=== PATIENT | female | born 1955 | race Caucasian/White ===

== ENCOUNTER 2021-03-06 07:44 | Outpatient (CLI) | payer OTHER, SELFPAY ==
[2021-03-06 09:15] LABS: Basophils Percent Auto 0.7 % (0.2-1.2); Eosinophils Absolute Auto 0.3 K/mm3 (0-0.3); Eosinophils Percent Auto 4.7 % (0-4.4); Hematocrit 42.4 % (37.0-47.0); Hemoglobin 14.6 g/dL (12.0-15.0); Immature Granulocyte Absolute 0.02 K/mm3 (0.00-0.031); Immature Granulocyte Percent A 0.3 % (0-0.5); Lymphocytes Percent Auto 32.7 % (18.3-44.2); Mean Corpuscular HGB Conc 34.4 g/dl (32-36); Mean Corpuscular Hemoglobin 32.2 pg (26-34); Mean Corpuscular Volume 93.6 fl (80-100); Mean Platelet Volume 8.9 fl (7.4-10.4); Monocytes Absolute Auto 0.6 K/mm3 (0.1-0.6); Monocytes Percent Auto 9.8 % (2.6-8.5); Neutrophils Absolute Auto 3.2 K/mm3 (1.3-6.7); Neutrophils Percent Auto 51.8 % (45.5-73.1); Platelet Count Result 224 k/mm3 (150-375); Red Blood Count 4.53 M/mm3 (4.2-5.4); Red Cell Distribution Width 12.4 % (11.5-14.5); White Blood Count 6.1 K/mm3 (4.5-10.0)
[2021-03-06 09:23] LABS: Albumin Level 4.5 g/dL (3.5-5.1)
[2021-03-06 09:28] LABS: Hemoglobin A1C 5.4 % (<5.7)
[2021-03-06 09:29] LABS: Urine Cotinine NEGATIVE
[2021-03-06 09:33] LABS: Anion Gap 4 mmol/L (8-16); Blood Urea Nitrogen 10 mg/dL (7-17); Calcium 9.5 mg/dL (8.4-10.2); Carbon Dioxide 32 mmol/L (22-30); Chloride 105 mmol/L (98-107); Estimated Glomerular Filt Rate 56; Glucose 113 mg/dL (65-105); Potassium 3.6 mmol/L (3.4-5.0); Sodium 141 mmol/L (137-145)
== END 2021-03-06 07:45 | disposition home or self-care (01) ==
LOC: ANHSURGERY 07:48
PROVIDERS: Anesthesiology; PCP Internal Medicine; Visit Provider Orthopaedic Surgery
DX: M17.10 Unilateral primary osteoarthritis, unspecified knee (principal); E11.9 Type 2 diabetes mellitus without complications; Z01.818 Encounter for other preprocedural examination
CPT/HCPCS: 36415; 80048; 80307; 82040; 83036; 85025; 86850; 86900; 86901; 87081

== ENCOUNTER → 2021-03-16 07:37 | Outpatient (CLI) | payer OTHER, SELFPAY ==
[2021-03-16 19:22] LABS: SARS-CoV-2 RNA PCR Negative
== END ==
PROVIDERS: PCP Internal Medicine; Visit Provider Orthopaedic Surgery
DX: Z01.812 Encounter for preprocedural laboratory examination (principal); Z20.822 Contact with and (suspected) exposure to COVID-19
CPT/HCPCS: C9803; U0003; U0005

== ENCOUNTER 2021-03-19 00:42 | Day surgery (SDC) | payer OTHER, SELFPAY ==
[2021-03-06 08:15] VITALS: BP 154/86; PULSE 76; RESP 18; TEMP 36.9; O2SAT 96; BMI 27.2
[2021-03-19] VITALS (15 sets, daily range): BP systolic 113–160; BP diastolic 64–88; PULSE 67–85; RESP 10–18; TEMP 36.1–36.8; O2SAT 95–100; BMI 32.9
--- NOTE | ~2021-03-19 | XR_ITS ---
EXAMINATION: XR knee LT 2V DATE: 03/19/2021 10:18 INDICATION: Left knee arthroplasty. Postop. TECHNIQUE: 2 views of left knee were obtained. COMPARISON: Left knee radiographs 12/23/2019 FINDINGS: There is a total left knee arthroplasty with patellar resurfacing in near-anatomic alignmen t. No fracture. There is gas in the knee joint and soft tissues, consistent with recent surgery. IMPRESSION: 1. Total left knee arthroplasty in near-anatomic alignment. Reviewed, dictated and finalized at location B.
[2021-03-19] MEDS: ACETAMINOPHEN 500 MG TABLET 1000 MG PO ×3 (06:18→21:08)
--- NOTE | 2021-03-19 06:34 | WPDANESEPPF ---
Anes - Initial Pre Proc Eval Procedure: Operation Date: 03/19/21 07:30 Proposed Procedures p Left Total Knee Arthroplasty - Narciso Lawrence MD Date/Time: 03/19/21 06:34 Surgeon: Narciso Lawrence MD Pre Op Diagnosis: Left Knee OA Patient Data Age: 65 Gender: F Height: 1.72 m Weight: 79.2 kg Last Vital Signs Temp 36.9 C 03/06/21 08:15 Pulse 76 03/06/21 08:15 Resp 18 03/06/21 08:15 BP 154/86 H 03/06/21 08:15 Pulse Ox 96 03/06/21 08:15 Allergies Allergy/AdvReac Type Severity Reaction Status Date / Time Sulfa (Sulfonamide Allergy Unknown Unknown-LAST Verified 03/06/21 08:03 Antibiotics) RECEIVED 1979 Home Medications Medication Instructions Recorded Confirmed Type amlodipine 5 mg tablet 5 mg PO QAM tablet 10/14/19 03/19/21 History losartan 100 1 tablet PO QAM tablet 10/14/19 03/19/21 History mg-hydrochlorothiazide 12.5 mg tablet sertraline 50 mg tablet 50 mg PO QAM tablet 10/14/19 03/19/21 History semaglutide 1.5 ml SUBCUT WEEKLY 11/21/20 03/19/21 History cranberry extract 500 mg PO QAM 03/06/21 03/19/21 History evolocumab [Marbella Petersen] See Rx Instructions .ROUTE .COMPLEX 03/06/21 03/19/21 History milk thistle 175 mg PO QAM 03/06/21 03/19/21 History omeprazole 20 mg PO QAM 03/06/21 03/19/21 History ropinirole 0.5 mg PO HS 03/06/21 03/19/21 History trazodone 50 mg PO HS 03/06/21 03/19/21 History mupirocin 2 % topical ointment 1 applic TOPICAL BID #22 g 03/08/21 03/19/21 Rx rivaroxaban 10 mg tablet 10 mg PO DAILY #14 tablet 03/08/21 03/19/21 Rx Patient hx anesthesia problems: none Family hx anesthesia problems: none PMFSH Past Medical History Medical History (Updated 03/19/21 @ 06:35 by Fausto J. Luchtefeld, DO) BMI 30.0-30.9,adult Diabetes 11/08/20 A1C=5.7 GERD (gastroesophageal reflux disease) Hyperlipidemia Hypertension Ureter cancer Surgical History Surgical History History of hysterectomy History of nephrectomy 01/2019 History of rotator cuff surgery History of surgery on wrist Social History Social History Smoking status: Never smoker Second hand tobacco smoke exposure: No Alcohol intake: current Drinks per week: 6 Substance use: never Substance use type: does not use Living arrangements: with friend(s) Additional living arrangements comments: LIVES WITH SIGNIFICANT OTHER Spiritual care concerns: No Anes - Eval Final PreProcedure Day of Procedure 03/19/21 06:34 Patient weight: overweight Heart: regular rate and rhythm Lungs: clear to auscultation and normal air movement Airway: Mallampati scale class II Neurological: alert and oriented Last oral intake: >/= 8 hours ASA classification: III Emergent: no Anesthetic plan: proceed Anesthesia type and monitoring: regional spinal and standard monitoring Informed Consent: The patient's anesthetic plan and its attendant risks and benefits were discussed with the patient/family/POA. Questions were solicited and answers provided to the satisfaction of the patient/family/POA.
[2021-03-19 06:38] LABS: Glucose Point of Care 107 mg/dl (65-105)
--- NOTE | 2021-03-19 06:42 | WPDANESPNB ---
Anes - Peripheral Nerve Block Date/Time: 03/19/21 06:42 I have discussed with the patient/family/POA the placement of a peripheral nerve block for post-operative pain management, including associated risks, benefits, complications, and side effects. Alternative methods of post-operative analgesia were detailed. Questions were solicited and answers provided to the satisfaction of the patient/family/POA. Time-Out: A pre-procedural Time-Out was completed immediately before starting the procedure and confirmed: Patient Identification, Site, Procedure, Patient Position and the Availability of Requisite Equipment. Clinical Indications: Acute post-operative pain management requested by the operative surgeon. Nerve Block Insertion Note Anes-nerve block: adductor canal left Patient position: supine Skin prep: chlorhexidine Needle: 22 gauge, stimulating, insulated echogenic needle. Needle length: 80 mm Technique: ultrasound Injectate: bupivacaine 0.5% with epi 5 mcg/ml (30cc - no epi) Observations: tolerated well Complications: none Procedure start time:: 717 Procedure end time:: 721
[2021-03-19] MEDS: LACTATED RINGERS 1,000 ML 30 ML IV CONT ×2 (06:52→10:08)
--- NOTE | 2021-03-19 07:02 | WPDHPUPDATE1 ---
History and Physical Update Update Date/Time: 03/19/21 07:02 History and Physical has been reviewed, including an updated exam of the patient. There are NO changes in the patient's condition. Risks, benefits, and alternatives have been discussed and questions answered. Patient agrees to proceed with procedure.
[2021-03-19] MEDS: TRANEXAMIC ACID 1,000MG/ISO100 1,000 MG/100 ML BAG 200 MG IVPB (07:05)
[2021-03-19] MEDS: ceFAZolin 2 GM/D5W 50 ML 2 GM/50 ML BAG IVPB (07:39)
[2021-03-19] MEDS: TRANEXAMIC ACID 1,000 MG/10 ML AMPUL 1000 MG TOPICAL (08:13)
[2021-03-19] MEDS: ceFAZolin SODIUM 1 GM VIAL IV PUSH (09:16)
--- NOTE | 2021-03-19 09:49 | P.OP_ITS ---
Procedure Note - Detailed Date of procedure: 03/19/21 Pre-op diagnosis: Left Knee OA Post-op diagnosis: same Procedure performed: Left total knee replacement Description of procedure: The patient was identified and proper site identified. In the preop holding area the anesthesia team performed a left sub sartorial block after which the patient was taken to the operating room and transferred to the OR table positioning supine taking care to pad the torso and extremities. After a spinal anesthetic was administered, a nonsterile tourniquet was placed high on the left thigh. The left lower extremity was prepped and draped in the usual sterile fashion. The extremity was exsanguinated and with the knee flexed tourniquet was inflated to 300 mmHg remaining up for approximately 70 minutes. An anterior midline incision was made and a mid vastus approach was used. Infra and suprapatellar fat pads were excised. Patella was resected leaving 15 mm thickness and prepared for the 31 round three peg component. Using the intramedullary guide the distal femur was cut in the proper orientation for the size 65 femoral component. Using the extramedullary guide the tibia was cut perpendicular to the long axis protecting collateral ligaments and popliteal structures. It was sized to a 67. Flexion and extension gaps were balanced. Trial reduction was undertaken and the weight-bearing line was noted to passed through the center of the joint. Proximal tibia was drilled and punched in the proper orientation for the real component. Trial components were removed. The bone surfaces were washed with pulsatile lavage and dried. The real components were cemented simultaneously. The knee was held in extension and the patella held clamped until the cement had cured. Excess cement was removed from the joint. After trialing it was determined that the 11 mm insert gave full range of motion from 0-120 degrees of flexion and the patella tracked in the femoral groove with no lift-off. After final lavage the joint the real 11 E poly insert was placed and secured with a locking bar. A Betadine and saline wash was placed into the wound and allowed to sit for approximately 3 minutes and then evacuated. Periarticular tissues were infiltrated with 60 cc of the arthroplasty solution. 1 g of tranexamic acid was left in the wound. The extensor mechanism was repaired with #2 Vicryl suture and 0 looped PDS suture. Subcu was reapproximated with three 0 Monocryl and two 0 strata fix with tissue adhesive for the skin. A sterile dressing was applied. She tolerated the procedure well, was awakened and extubated, transferred to the bed and was taken to recovery area in stable condition. There were no known intraoperative complications. Perioperative antibiotics were administered. Anesthesia: regional and spinal Surgeon: Narciso Lawrence MD Tower Equipment Installer: Kayy Alas Estimated blood loss (mL): 100 Tourniquet time (min): 70 Drains: No Packing: No Pathology: none sent Complications: No immediate complications Condition: stable Disposition: PACU
[2021-03-19 10:35] LABS: Glucose Point of Care 121 mg/dl (65-105)
--- NOTE | 2021-03-19 10:45 | SUR.PHASEI ---
[id number] sbar faxed floor notified
[2021-03-19] MEDS: fentaNYL CITRATE INJ (*CRX) 100 MCG/2 ML VIAL 25 MCG IV PUSH ×2 (10:49→10:52)
--- NOTE | 2021-03-19 11:25 | ADMGEN ---
This patient, Matheus Boyle, was admitted to 2 Medical Room 244-. Patient/family oriented to hospital policies and general routines including ID bracelet, bed and alarms, visiting hours, pain management, procedures, bathroom and other care routines, personal items, smoking policy, room service/diet, and visiting hours. Information on how to activate the Rapid Response Team has been discussed. Patient/Family are encouraged to report perceived risks to care and to ask questions if they do not understand what they are told or what they should do.
[2021-03-19] MEDS: KETOROLAC 15 MG/ML VIAL (*BKC) IV PUSH ×3 (11:56→23:19)
[2021-03-19] MEDS: oxyCODONE HCL (*CRX) 5 MG TAB IR PO ×4 (12:11→23:59)
[2021-03-19 12:32] LABS: Glucose Point of Care 84 mg/dl (65-105)
[2021-03-19] MEDS: PANTOPRAZOLE 40 MG TABLET PO (13:19)
[2021-03-19] MEDS: LOSARTAN POTASSIUM 100 MG TABLET PO (13:20)
[2021-03-19] MEDS: hydroCHLOROthiazide 12.5 MG CAPSULE PO (13:20)
[2021-03-19] MEDS: DOCUSATE SODIUM 100 MG CAPSULE PO (16:58)
[2021-03-19 17:04] LABS: Glucose Point of Care 84 mg/dl (65-105)
[2021-03-19] MEDS: traZODone HCL 50 MG TABLET PO (21:08)
[2021-03-19] MEDS: rOPINIRole HCL 0.5 MG TABLET PO (21:08)
[2021-03-19 21:29] LABS: Glucose Point of Care 116 mg/dl (65-105)
[2021-03-20 00:59] VITALS: BP 122/74; PULSE 81; RESP 16; TEMP 36.8; O2SAT 96
[2021-03-20] MEDS: oxyCODONE HCL (*CRX) 2.5 MG TAB IR PO ×4 (01:51→14:41)
[2021-03-20] MEDS: oxyCODONE HCL (*CRX) 5 MG TAB IR PO ×3 (04:49→12:42)
[2021-03-20 05:00] VITALS: BP 114/76; PULSE 82; RESP 16; TEMP 36.7; O2SAT 95
[2021-03-20 05:16] LABS: Basophils Percent Auto 0.4 % (0.2-1.2); Eosinophils Absolute Auto 0.2 K/mm3 (0-0.3); Hematocrit 34.9 % (37.0-47.0); Immature Granulocyte Absolute 0.01 K/mm3 (0.00-0.031); Immature Granulocyte Percent A 0.1 % (0-0.5); Lymphocytes Percent Auto 20.3 % (18.3-44.2); Mean Corpuscular HGB Conc 34.4 g/dl (32-36); Mean Corpuscular Hemoglobin 31.7 pg (26-34); Mean Corpuscular Volume 92.3 fl (80-100); Mean Platelet Volume 9.3 fl (7.4-10.4); Monocytes Absolute Auto 0.8 K/mm3 (0.1-0.6); Neutrophils Absolute Auto 4.4 K/mm3 (1.3-6.7); Neutrophils Percent Auto 64.2 % (45.5-73.1); Platelet Count Result 168 k/mm3 (150-375); Red Blood Count 3.78 M/mm3 (4.2-5.4); Red Cell Distribution Width 12.1 % (11.5-14.5); White Blood Count 6.9 K/mm3 (4.5-10.0)
[2021-03-20 05:26] LABS: Anion Gap 3 mmol/L (8-16); Blood Urea Nitrogen 10 mg/dL (7-17); Calcium 8.8 mg/dL (8.4-10.2); Carbon Dioxide 32 mmol/L (22-30); Chloride 103 mmol/L (98-107); Estimated CRCL calculation 65 ml/min; Estimated Glomerular Filt Rate > 60; Glucose 116 mg/dL (65-105); Potassium 3.7 mmol/L (3.4-5.0); Sodium 138 mmol/L (137-145)
[2021-03-20] MEDS: ACETAMINOPHEN 500 MG TABLET 1000 MG PO ×2 (05:29→13:54)
--- NOTE | 2021-03-20 07:19 | PM.DS ---
DS: Admitting Diagnosis Admitting Diagnosis Admitting Diagnosis: Osteoarthritis left knee DS: Discharge Diagnosis Discharge Diagnosis (1) History of left knee replacement: Code(s): Z96.652 - Presence of left artificial knee joint Status: Resolved (2) Osteoarthritis of knee: Qualifiers: Osteoarthritis type: primary Laterality: left Qualified Code(s): M17.12 - Unilateral primary osteoarthritis, left knee Code(s): M17.10 - Unilateral primary osteoarthritis, unspecified knee Status: Chronic Assessment and Plan: The patient will be discharged home today and the doing therapy on her own for the balance of the week. Outpatient therapy begins next week. Home going instructions reviewed with her in detail as well as instructions to contact the office with any orthopedic related questions. DS: Summary Hospital Course Reason for hospitalization: Observation following an outpatient procedure. Hospital Course: Postoperatively the patient was admitted to the floor and began her physical therapy. Overall her pain is being well controlled. She will be discharged after second therapy today. Status at Discharge Functional status at discharge: uses cane/walker Time Spent with Patient Time attestation: Total time spent providing and/or coordinating discharge services: Exam Const: General: cooperative, no acute distress and alert Orientation/consciousness: patient oriented x3 Limitations: no limitations HENMT: Head: normal to inspection Ears: hearing grossly normal bilaterally Face and sinus: face symmetric Mouth: Yes moist mucous membranes Teeth and gingiva: fair dentition Eyes: Alignment and Position: alignment normal and position normal Sclera: sclerae normal Neck: Neck: normal visual inspection and nontender Chest: Chest palpation & inspection: normal inspection of the chest Resp: Effort & Inspection: normal respiratory effort and able to speak in complete sentences GI: Inspection: other (Nondistended) Skin: General skin exam: normal color Rashes: no rashes Neuro: General: patient oriented x3 Cognition (Neuro): normal cognition Speech: normal speech Gait exam (Neuro): Other gait observations present Extrem: General: normal to inspection and other Other: Exam of the left lower extremity does reveal some swelling about the knee. No bruising, warmth or erythema noted around the incision. She is able do a straight leg raise. Passively she has full extension. Grossly motor and sensory function intact to the left lower extremity. Psych: Appearance: grossly normal Mental Status: mental status grossly normal Radiology Reports: Comments: EXAMINATION: XR knee LT 2V DATE: 03/19/2021 10:18 INDICATION: Left knee arthroplasty. Postop. TECHNIQUE: 2 views of left knee were obtained. COMPARISON: Left knee radiographs 12/23/2019 FINDINGS: There is a total left knee arthroplasty with patellar resurfacing in near-anatomic alignment. No fracture. There is gas in the knee joint and soft tissues, consistent with recent surgery. IMPRESSION: 1. Total left knee arthroplasty in near-anatomic alignment. DS: Data Data Completed and Pending Labs on day of discharge: Labs from last 24 hours 03/20/21 03/20/21 03/19/21 04:44 04:44 21:22 WBC 6.9 RBC 3.78 L Hgb 12.0 Hct 34.9 L MCV 92.3 MCH 31.7 MCHC 34.4 RDW 12.1 Plt Count 168 MPV 9.3 Immature Gran % (Auto) 0.1 Neut % (Auto) 64.2 Lymph % (Auto) 20.3 [place] % (Auto) 12.0 H Eos % (Auto) 3.0 Baso % (Auto) 0.4 Lymph # (Auto) 1.40 [place] # (Auto) 0.8 H Eos # (Auto) 0.2 Baso # (Auto) 0.0 Abs Immat Gran (auto) 0.01 Absolute Neuts (auto) 4.4 Absolute Nucleated RBC 0.0 Nucleated RBC % 0.0 Sodium 138 Potassium 3.7 Chloride 103 Carbon Dioxide 32 H Anion Gap 3 L BUN 10 Creatinine 0.90 Estim Creat Clear Calc 65 Estimated GFR > 60 Glucose
[2021-03-20 08:04] LABS: Glucose Point of Care 129 mg/dl (65-105)
[2021-03-20] MEDS: hydroCHLOROthiazide 12.5 MG CAPSULE PO (08:43)
[2021-03-20] MEDS: DOCUSATE SODIUM 100 MG CAPSULE PO (08:43)
[2021-03-20] MEDS: RIVAROXABAN 10 MG TABLET PO (08:44)
[2021-03-20] MEDS: LOSARTAN POTASSIUM 100 MG TABLET PO (08:44)
[2021-03-20] MEDS: PANTOPRAZOLE 40 MG TABLET PO (08:44)
[2021-03-20 08:59] VITALS: BP 110/65; PULSE 78; RESP 16; TEMP 36.9; O2SAT 95
[2021-03-20] MEDS: ONDANSETRON INJ 4 MG/2 ML VIAL IV PUSH (10:19)
[2021-03-20] MEDS: SERTRALINE HCL 50 MG TABLET PO (10:54)
[2021-03-20] MEDS: amLODIPine BESYLATE 5 MG TABLET PO (10:54)
[2021-03-20 12:02] LABS: Glucose Point of Care 165 mg/dl (65-105)
[2021-03-20 12:59] VITALS: BP 120/70; PULSE 76; RESP 16; TEMP 37; O2SAT 98
--- NOTE | 2021-03-20 13:54 | P.PNAN_ITS ---
Anes - Prog Note Post-Op Date/Time: 03/20/21 13:54 Cardiovascular status: normal Respiratory status: normal Airway patency: baseline Mental status: baseline Post-Op hydration status: normal Vital Signs: Last Vital Signs Temp 36.9 C 03/20/21 08:59 Pulse 78 03/20/21 08:59 Resp 16 03/20/21 08:59 BP 110/65 03/20/21 08:59 Pulse Ox 95 03/20/21 08:59 Pain Score (VAS): 8 I/O: Intake & Output 03/19/21 03/20/21 03/20/21 23:59 07:59 15:59 Intake Total 840 400 530 Output Total 475 Balance 365 400 530 Laboratory Tests 03/20/21 04:44 03/20/21 04:44 03/19/21 03/19/21 03/20/21 16:54 21:22 04:44 WBC 6.9 RBC 3.78 L Hgb 12.0 Hct 34.9 L MCV 92.3 MCH 31.7 MCHC 34.4 RDW 12.1 Plt Count 168 MPV 9.3 Immature Gran % (Auto) 0.1 Neut % (Auto) 64.2 Lymph % (Auto) 20.3 [place] % (Auto) 12.0 H Eos % (Auto) 3.0 Baso % (Auto) 0.4 Lymph # (Auto) 1.40 [place] # (Auto) 0.8 H Eos # (Auto) 0.2 Baso # (Auto) 0.0 Abs Immat Gran (auto) 0.01 Absolute Neuts (auto) 4.4 Absolute Nucleated RBC 0.0 Nucleated RBC % 0.0 Sodium Potassium Chloride Carbon Dioxide Anion Gap BUN Creatinine Estim Creat Clear Calc Estimated GFR Glucose POC Capillary Glucose 84 116 H Calcium 03/20/21 03/20/21 03/20/21 04:44 07:45 11:46 WBC RBC Hgb Hct MCV MCH MCHC RDW Plt Count MPV Immature Gran % (Auto) Neut % (Auto) Lymph % (Auto) [place] % (Auto) Eos % (Auto) Baso % (Auto) Lymph # (Auto) [place] # (Auto) Eos # (Auto) Baso # (Auto) Abs Immat Gran (auto) Absolute Neuts (auto) Absolute Nucleated RBC Nucleated RBC % Sodium 138 Potassium 3.7 Chloride 103 Carbon Dioxide 32 H Anion Gap 3 L BUN 10 Creatinine 0.90 Estim Creat Clear Calc 65 Estimated GFR > 60 Glucose 116 H POC Capillary Glucose 129 H 165 H Calcium 8.8 Post-procedural complaints: none Patient Feedback: Patient satisfied with anesthetic care.
== END 2021-03-20 14:44 | disposition home or self-care (01) ==
LOC: ANHSURGERY 05:52 → ANH2MED 11:20
PROVIDERS: PCP Internal Medicine; Visit Provider Orthopaedic Surgery
PROC: (CPT 27447; principal; 2021-03-19 07:30)
DX: M17.12 Unilateral primary osteoarthritis, left knee (principal); G89.18 Other acute postprocedural pain; I10 Essential (primary) hypertension; E78.5 Hyperlipidemia, unspecified; E11.9 Type 2 diabetes mellitus without complications; K21.9 Gastro-esophageal reflux disease without esophagitis; Z85.54 Personal history of malignant neoplasm of ureter; Z79.01 Long term (current) use of anticoagulants
CPT/HCPCS: 27447; 64447; 36415; 73560; 80048; 82948; 85025; 97110; 97116; 97161; 97165; 97530; 97535; A9270; C1713; C1776; J0690; J1170; J1885; J2250; J2405; J2704; J3010; J3370; J7120

== ENCOUNTER 2021-05-28 12:03 | Outpatient (CLI) | payer OTHER, SELFPAY ==
--- NOTE | ~2021-05-28 | US_ITS ---
EXAMINATION: US venous doppler [facility] DATE: 05/28/2021 12:34 INDICATION: Left leg pain TECHNIQUE: Byrd scale images without and with compression and Doppler images of the left lower extrem ity veins were obtained. COMPARISON: None FINDINGS: The left common femoral vein, profunda femoral vein, femoral vein, popliteal vein, peroneal trunk, posterior tibial veins, and greater saphenous vein are patent. A Willis's cyst is noted. There is a 2.7 x 1.7 x 0.3 cm hypoechoic area without internal vascularity in the area of patient's pain. IMPRESSION: 1. Patent left lower extremity veins. No evidence of deep venous thrombosis. 2. Small fluid collection in the area of the patient's pain which could reflect a small amount of flu id from a ruptured Willis's cyst. Reviewed, dictated and finalized at location A. IMPRESSION: 1. Patent left lower extremity veins. No evidence of deep venous thrombosis. 2. Small fluid collection in the area of the patient's pain which could reflect a small amount of fluid from a ruptured Willis's cyst.
== END 2021-05-28 12:04 | disposition home or self-care (01) ==
PROVIDERS: PCP Internal Medicine; Visit Provider Orthopaedic Surgery
DX: M79.662 Pain in left lower leg (principal); M79.89 Other specified soft tissue disorders
CPT/HCPCS: 93971

== ENCOUNTER 2021-06-21 17:00 | Outpatient (RCR) | payer OTHER, SELFPAY ==
--- NOTE | 2021-03-27 13:28 | PTOPEVAL ---
PHYSICAL THERAPY EVALUATION AND PLAN OF CARE Thank you for referring Matheus Boyle to [facility].? The patient is scheduled to be seen for therapy? 2-3x/week for 5 weeks. Please review, sign, date and return this plan of care SIMONA. I agree with and certify that the following plan of care is medically necessary. Referring Physician Date Attending Provider: Narciso Lawrence MD Evaluation Outpatient Past Medical History Neurological History Hx Neurological Disorders No Significant History Cardiovascular History Hx Hypercholesterolemia Yes Hx Hypertension Yes Hx Other Cardiac Disorders Yes: PT DENIES CARDIAC SYMPTOMS. 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 Respiratory History Hx Respiratory Disorders No Significant History Gastrointestinal History Hx Gastroesophageal Reflux Disease Yes Hx Other Gastrointestinal Disorders Yes: FATTY LIVER DISEASE Genitourinary History Hx Nephrectomy Yes: RT 2019 DUE TO [place] Musculoskeletal History Hx Arthritis Yes Hx Fractures Yes: RT WRIST Hx Orthopedic Surgery Yes: RT ROTATOR CUFF REPAIR, ORIF RT WRIST Hematological History Hx Hematological Disorders No Significant History Endocrine History Hx Diabetes Yes HEENT History Hx Other HEENT Disorders Yes: GLASSES Integumentary History Hx Excision Skin Lesion Yes: BACK Reproductive History Hx Hysterectomy Yes Hx Other Reproductive Disorders Yes: LT SIDE ETOPIC PREGNCEY 1980 Psychosocial History Hx Depression Yes Pain History Has Past Pain Affected Your Daily Life Yes: LT KNEE Anesthesia History Hx Anesthesia Reactions No Significant History Other History Hx Cancer Yes: KIDNEY Hx Implanted Device Yes: RT WRIST Diagnosis left TKA Onset 03/19/21 Subjective Information Left TKA 1 week ago. States Query Text:As Reported By Patient/ that sleeping is not good and Family the pain medication is not very effective. Matheus is doing exercises she was given in the hospital and is otherwise trying to rest. Self Report Pain Assessment Left Knee(s) Reported Pain Level 9 Pain Frequency Acute,Intermittent Lowest Pain Intensity 9 Greatest Pain Intensity 10 Pain Score Pain Score 9: Self Report Interventions Used Interventions Used By Clinicians Exercise,Mobilization,Manual Therapy Techniques Pain Relief Interventions Used By Ice,Inactivity/Rest,Medication Patient
--- NOTE | 2021-04-03 14:26 | PCPTNOTE ---
Patient did not show up for scheduled appointment this date. Called and spoke with Pt. She stated to have forgotten she had an appointment today. Reminded her of her appointment tomorrow at 13:45, to which she requested to move to earlier slot. Pt's appointment is now at 10:15 on 04/04/21.
--- NOTE | 2021-04-09 09:53 | PCPTNOTE ---
Patient called & cancelled scheduled appointment this date due to not having a ride available to take her to her appointment.
--- NOTE | 2021-04-23 13:22 | PTOPEVAL ---
PHYSICAL THERAPY PLAN OF CARE UPDATE AND PROGRESS REPORT Thank you for referring Matheus Boyle to [facility].? The patient is scheduled to be seen for therapy? 2x/week for 4 weeks. Please review, sign, date and return this plan of care SIMONA. I agree with and certify that the following plan of care is medically necessary. Referring Physician Date Attending Provider: Narciso Lawrence MD Diagnosis left TKA Onset 03/19/21 Subjective Information Matheus is 5 weeks s/p left TKA. Query Text:As Reported By Patient/ She reports that things are Family going well and noting steady progress. Still notes swelling and pain that feels like a bruise. Self Report Pain Assessment Left Knee(s) Reported Pain Level 1 Pain Frequency Acute,Intermittent Pain Score Pain Score 1: Self Report Interventions Used Interventions Used By Clinicians Electrical Stimulation, Exercise,Ice Pain Relief Interventions Used By Ice,Inactivity/Rest,Medication Patient Lower Extremity Range of Motion Knee Range of Motion Left Knee Flexion Range of Motion - Active 106 Knee Extension Range of Motion - Active -3 Query Text: Knee Range of Motion Limitations Edema,Pain Lower Extremity Muscle Strength Testing Hip Strength Left Hip Flexion Strength 4+ Good + Hip Extension Strength 4 Good Hip Abduction Strength 4- Good - Knee Strength Left Knee Flexion Strength 4 Good Knee Extension Strength 4 Good Palpation Assessment Palpation Palpation mild warmth noted that is normal for healing Extremity Circumference Assessment Circumference Assessment Location Left Body Part Knee Site Descriptor (Helix) suprapatellar Circumference (cm) 44 Noninvolved Side Circumference (cm) 41 Gait Assessment Gait Assessment Ambulation Assistive Devices None Weight Bearing Status - Left Full Weight Bearing Status - Right Full Maintains Weight Bearing Status Yes Ambulation Distance 150 Query Text:(Feet) Ambulation Speed (feet/second) 2.2 Ambulation Ability Independent Stair Climbing Assessment Stair Climbing Assessment Stair Climbing Assistive Devices Railings Number of Steps Climbed (Steps) 4 Number of Repetitions (Repetitions) 2 Technique Alternating Steps Stair Climbing Direction Both Up and Down Stair Climbing Ability Independent General Exercise General Exercises Side Left Exercise Location knee Exercise Type
--- NOTE | 2021-05-23 12:57 | PCPTNOTE ---
Patient called & cancelled scheduled appointment this date due to having wrong time written down on her schedule has rescheduled for another appointment tomorrow.
--- NOTE | 2021-05-28 11:32 | PCPTNOTE ---
Matheus comes to her appointment today complaining of increased pain in her left calf. She states she has felt like it was bruised since surgery, but feels it worsened over the weekend. The skin is not hot or red; circumference left = 35.5cm, circumference right = 35cm, point tender to middle of gastroc. I spoke with Dr. Lawrence regarding these symptoms and he referred her for a duplex scan of the gastroc. Because of this referral and risk of DVT, we will reschedule this re-assessment for a later date. Today's appointment is cancelled.
--- NOTE | 2021-06-06 11:24 | PTOPEVAL ---
PHYSICAL THERAPY PROGRESS REPORT Thank you for referring Matheus Boyle to [facility].? Please review, sign, date and return this plan of care SIMONA. I agree with and certify that the following plan of care is medically necessary. Referring Physician Date Attending Provider: Narciso Lawrence MD Diagnosis left TKA Onset 03/19/21 Subjective Information Matheus had a doppler last week Query Text:As Reported By Patient/ that was negative for DVT, but Family positive for fluid consistent with burst mohan's cyst. She still has night pain and popping when doing stairs. Self Report Pain Assessment Left Knee(s) Reported Pain Level 2 Pain Frequency Acute,Intermittent Pain Score Pain Score 2: Self Report Interventions Used Interventions Used By Clinicians Exercise,Manual Therapy Techniques Pain Relief Interventions Used By Ice,Inactivity/Rest,Medication Patient Lower Extremity Range of Motion Knee Range of Motion Left Knee Flexion Range of Motion - Active 109 Knee Extension Range of Motion - Active -3 Query Text: Knee Range of Motion Limitations Edema,Pain Lower Extremity Muscle Strength Testing Hip Strength Left Hip Flexion Strength 5 Normal Hip Extension Strength 4+ Good + Hip Abduction Strength 4+ Good + Knee Strength Left Knee Flexion Strength 4+ Good + Knee Extension Strength 5 Normal General Exercise General Exercises Side Left Exercise Location knee Exercise Type Active,Resistive Exercise Description -sit<>stand with feet Query Text:Record Sets, Reps, staggered right foot forward Resistance, and Position -discussed further left LE strengthing -half kneeling (left foot up) stand up from ground Bike Exercise Bike Extremity Bilateral Lower Type of Bike Recumbent Bike Resistance 5 Duration (minutes) 6 PT Clinical Summary Matheus is a 65 yo female s/p left TKA. Matheus continue to demonstrate improved left knee rehabilitation with improved strength and ROM of the left knee. She would benefit from continuing her HEP to further strengthen the knee after surgery. She is otherwise participa
--- NOTE | 2021-06-13 14:25 | PCPTNOTE ---
Patient called & cancelled scheduled appointment this date due writing down the wrong time. She rescheduled for 06/21.
--- NOTE | 2021-06-21 17:06 | PTOPEVAL ---
PHYSICAL THERAPY DISCHARGE NOTE Thank you for referring Matheus Boyle to [facility].? Please review, sign, date and return this plan of care SIMONA. I agree with and certify that the following plan of care is medically necessary. Referring Physician Date Attending Provider: Narciso Lawrence MD Discharge Diagnosis left TKA Onset 03/19/21 Subjective Information doing well; going back to work Query Text:As Reported By Patient/ on 06/25. reports popping in Family the knee is not painful but annoying; the popping does increase with stair climbing. Pain Assessment Timing of Pain Assessment Timing of Pain Assessment Pre-Treatment Pain Scale Pain Scale Used Numeric (1 - 10) Self Report Pain Assessment Left Knee(s) Reported Pain Level 3 Pain Frequency Acute,Intermittent Greatest Pain Intensity 4 Pain Score Pain Score 3: Self Report Interventions Used Interventions Used By Clinicians Exercise,Manual Therapy Techniques Pain Relief Interventions Used By Ice,Inactivity/Rest,Medication Patient Lower Extremity Range of Motion Knee Range of Motion Left Knee Flexion Range of Motion - Active 118 Knee Extension Range of Motion - Active -1 Query Text: Knee Range of Motion Limitations Edema,Pain Lower Extremity Muscle Strength Testing Hip Strength Left Hip Flexion Strength 5 Normal Hip Extension Strength 4+ Good + Hip Abduction Strength 4+ Good + Knee Strength Left Knee Flexion Strength 5 Normal Knee Extension Strength 5 Normal General Exercise General Exercises Side Left Exercise Location knee Exercise Type Active,Resistive Exercise Description -sit<>stand with feet Query Text:Record Sets, Reps, staggered right foot forward Resistance, and Position Manual Therapy Manual Therapy Side Left Manual Therapy Location Knee Patient Position Prone Treatment Comments STM and tennis ball rolling Query Text:Include Technique and over left quadriceps Result of Technique Rehab Teaching Rehab Teaching Teaching Topic Rehab Teaching Topic Components Exercise,Home Program As Pertains To Follow-up,Pain Management Recipient Patient Learning Preferences Demonstration,Discussion Barriers to Learning None Readiness to Learn Excellent Response Returns Demonstration, Verbalizes Understanding Method
== END 2021-06-22 11:19 | disposition home or self-care (01) ==
LOC: ANHPT 17:00
PROVIDERS: PCP Internal Medicine; Visit Provider Orthopaedic Surgery
DX: Z47.1 Aftercare following joint replacement surgery (principal); Z96.652 Presence of left artificial knee joint
CPT/HCPCS: 97014; 97110; 97140; 97162; G0283

== ENCOUNTER 2021-06-22 00:05 | Day surgery (SDC) | payer OTHER, SELFPAY ==
[2021-05-17 11:21] VITALS: BMI 26.3
--- NOTE | 2021-06-12 14:04 | PC.NURSE ---
7608- SPOKE WITH PATIENT. WENT OVER HEALTH HISTORY AND MEDICATION INFORMATION BRIEFLY. STATES NO CHANGES SINCE THE LAST PAT PHONE CALL. WENT OVER INSTRUCTIONS WITH PATIENT. VERBALIZES UNDERSTANDING.
[2021-06-22 10:26] VITALS: BP 138/83; PULSE 84; RESP 18; TEMP 35.8; O2SAT 97; BMI 26.9
[2021-06-22] MEDS: AMPICILLIN 2 GM/NS 100 ML 2 GM/100 ML BAG IVPB (10:46)
[2021-06-22] MEDS: LACTATED RINGERS 1,000 ML 150 ML IV CONT (10:46)
[2021-06-22 10:55] LABS: Glucose Point of Care 122 mg/dl (65-105)
--- NOTE | 2021-06-22 11:00 | WPDANESEPPF ---
Anes - Initial Pre Proc Eval Procedure: Operation Date: 06/22/21 11:30 Proposed Procedures p Screening Colonoscopy - Gaetano Henry MD Date/Time: 06/22/21 11:00 Surgeon: Gaetano Henry MD Pre Op Diagnosis: neoplasm screening, family hx of colon ca Patient Data Age: 65 Gender: F Height: 1.68 m Weight: 75.6 kg Last Vital Signs Temp 96.4 F L 06/22/21 10:26 Pulse 84 06/22/21 10:26 Resp 18 06/22/21 10:26 BP 138/83 06/22/21 10:26 Pulse Ox 97 06/22/21 10:26 Allergies Allergy/AdvReac Type Severity Reaction Status Date / Time Sulfa (Sulfonamide Allergy Unknown Unknown-LAST Verified 06/12/21 13:57 Antibiotics) RECEIVED 1979 Home Medications Medication Instructions Recorded Confirmed Type amlodipine 5 mg tablet 5 mg PO QAM tablet 10/14/19 06/12/21 History losartan 100 1 tablet PO QAM tablet 10/14/19 06/12/21 History mg-hydrochlorothiazide 12.5 mg tablet sertraline 50 mg tablet 50 mg PO QAM tablet 10/14/19 06/12/21 History semaglutide 1.5 ml SUBCUT WEEKLY 11/21/20 06/12/21 History Repatha Deltaick See Rx Instructions .ROUTE .COMPLEX 03/06/21 06/12/21 History milk thistle 175 mg PO QAM 03/06/21 06/12/21 History omeprazole 20 mg PO QAM 03/06/21 06/12/21 History ropinirole 0.5 mg PO HS 03/06/21 06/12/21 History trazodone 50 mg PO HS 03/06/21 06/12/21 History Laboratory Tests 06/22/21 10:52 POC Capillary Glucose 122 mg/dl H mg/dl (65-105) Patient hx anesthesia problems: none Family hx anesthesia problems: none PMFSH Past Medical History Medical History BMI 30.0-30.9,adult Diabetes 11/08/20 A1C=5.7 GERD (gastroesophageal reflux disease) Hyperlipidemia Hypertension Ureter cancer Surgical History Surgical History History of hysterectomy History of left knee replacement Surgery March 19, 2021 History of nephrectomy 01/2019 History of rotator cuff surgery History of surgery on wrist Social History Social History Smoking status: Never smoker Second hand tobacco smoke exposure: No Alcohol intake: current Drinks per week: 6 Substance use: never Substance use type: does not use Living arrangements: with family Additional living arrangements comments: LIVES WITH SIGNIFICANT OTHER Spiritual care concerns: No Anes - Eval Final PreProcedure Day of Procedure 06/22/21 11:00 Patient weight: overweight Heart: regular rate and rhythm Lungs: clear to auscultation Airway: Mallampati scale class III Neurological: alert and oriented Last oral intake: >/= 8 hours ASA classification: III Emergent: no Anesthetic plan: proceed Anesthesia type and monitoring: general GIVS and standard monitoring Informed Consent: The patient's anesthetic plan and its attendant risks and benefits were discussed with the patient/family/POA. Questions were solicited and answers provided to the satisfaction of the patient/family/POA.
--- NOTE | 2021-06-22 11:06 | WPDGICN ---
Assessment and Plan Assessment and plan (1) Family history of colon cancer in father: Code(s): Z80.0 - Family history of malignant neoplasm of digestive organs Status: Acute Assessment and Plan: patient's father had colon cancer. For this reason suggest follow-up colonoscopy at 5 year intervals. (2) Ureter cancer: Code(s): C66.9 - Malignant neoplasm of unspecified ureter Status: Acute Assessment and Plan: Patient status post nephrectomy for ureteral cancer felt cured GI Consult Note Consult date/time: 06/22/21 11:06 HPI: Matheus Boyle is a 65 year old female Presents for screening colonoscopy. Patient states that her weight appetite bowel movements are normal. She denies abdominal pain. Previous colonoscopy performed in 2012 was unremarkable. Family history is significant her father had colon cancer. Review of Systems Review of Systems: All systems reviewed & are unremarkable except as noted in HPI and below PMFSH Past Medical History Medical History (Updated 06/22/21 @ 11:08 by Gaetano Henry MD) BMI 30.0-30.9,adult Diabetes 11/08/20 A1C=5.7 GERD (gastroesophageal reflux disease) Hyperlipidemia Hypertension Ureter cancer Surgical History Surgical History History of hysterectomy History of left knee replacement Surgery March 19, 2021 History of nephrectomy 01/2019 History of rotator cuff surgery History of surgery on wrist Social History Social History Smoking status: Never smoker Second hand tobacco smoke exposure: No Alcohol intake: current Drinks per week: 6 Substance use: never Substance use type: does not use Living arrangements: with family Additional living arrangements comments: LIVES WITH SIGNIFICANT OTHER Spiritual care concerns: No Meds Home Medications and Allergies Home Medications Medication Instructions Recorded Confirmed Type amlodipine 5 mg tablet 5 mg PO QAM tablet 10/14/19 06/12/21 History losartan 100 1 tablet PO QAM tablet 10/14/19 06/12/21 History mg-hydrochlorothiazide 12.5 mg tablet sertraline 50 mg tablet 50 mg PO QAM tablet 10/14/19 06/12/21 History semaglutide 1.5 ml SUBCUT WEEKLY 11/21/20 06/12/21 History Marbella Petersen See Rx Instructions .ROUTE .COMPLEX 03/06/21 06/12/21 History milk thistle 175 mg PO QAM 03/06/21 06/12/21 History omeprazole 20 mg PO QAM 03/06/21 06/12/21 History ropinirole 0.5 mg PO HS 03/06/21 06/12/21 History trazodone 50 mg PO HS 03/06/21 06/12/21 History Allergies Allergy/AdvReac Type Severity Reaction Status Date / Time Sulfa (Sulfonamide Allergy Unknown Unknown-LAST Verified 06/12/21 13:57 Antibiotics) RECEIVED 1979 Vital Signs Vital Signs - 24 hr 06/22/21 10:26 Temperature 96.4 F L Pulse Rate 84 Respiratory Rate 18 Blood Pressure 138/83 Pulse Oximetry 97 Exam Narrative: Physical exam reveals patient be alert. Vital signs stable. HEENT exam is unremarkable. Patient is anicteric. Lungs are clear to auscultation and percussion. Heart is without murmur or extra sounds. Abdominal exam bowel sounds are present soft nontender with no organomegaly. Digital external rectal exam is normal.
[2021-06-22 11:33] VITALS: BP 114/68; PULSE 82; RESP 20; O2SAT 99
[2021-06-22 11:43] VITALS: BP 129/87; PULSE 78; RESP 20; O2SAT 99
[2021-06-22 11:53] VITALS: BP 127/73; PULSE 78; RESP 20; O2SAT 99
== END 2021-06-22 12:13 | disposition home or self-care (01) ==
PROVIDERS: PCP Internal Medicine; Visit Provider Internal Medicine Gastroenterology
PROC: 0DJD8ZZ Inspection of Lower Intestinal Tract, Via Natural or Artificial Opening Endoscopic (ICD-10-PCS; CPT 45378; principal; 2021-06-22 11:30)
DX: Z12.11 Encounter for screening for malignant neoplasm of colon (principal); Z80.0 Family history of malignant neoplasm of digestive organs; C66.9 Malignant neoplasm of unspecified ureter; E11.9 Type 2 diabetes mellitus without complications; K21.9 Gastro-esophageal reflux disease without esophagitis; I10 Essential (primary) hypertension; E78.5 Hyperlipidemia, unspecified
CPT/HCPCS: 45378; 82948; J0290; J2704; J7120

== ENCOUNTER 2021-07-06 14:45 | Outpatient (CLI) | payer OTHER, SELFPAY ==
--- NOTE | ~2021-07-06 | US_ITS ---
EXAMINATION: US venous doppler [facility] DATE: 07/06/2021 15:18 INDICATION: Left leg pain TECHNIQUE: Byrd scale images without and with compression and Doppler images of the left lower extrem ity veins were obtained. COMPARISON: 12/16/2020 FINDINGS: A 3.9 x 1.8 x 2.7 cm Willis's cyst is noted. The left common femoral vein, profunda femoral vein, femoral vein, popliteal vein, peroneal trunk, posterior tibial veins, and greater saphenous vei n are patent. IMPRESSION: 1. Patent left lower extremity veins. No evidence of deep venous thrombosis. Reviewed, dictated and finalized at location B.
== END 2021-07-06 14:46 | disposition home or self-care (01) ==
LOC: ANHIMG 14:50
PROVIDERS: PCP Internal Medicine; Visit Provider Orthopaedic Surgery
DX: M79.662 Pain in left lower leg (principal); M79.89 Other specified soft tissue disorders
CPT/HCPCS: 93971

== ENCOUNTER 2022-06-24 12:30 | Outpatient (RCR) | payer MEDICARE, OTHER, SELFPAY ==
[2022-05-24 12:32] VITALS: BP_SYST 160
--- NOTE | 2022-05-24 13:30 | PTOPEVAL ---
PHYSICAL THERAPY INITIAL EVALUATION. Thank you for referring Matheus Boyle to [facility].? The patient is scheduled to be seen for therapy? 1x/week for 4 weeks. Please review, sign, date and return this plan of care SIMONA. I agree with and certify that the following plan of care is medically necessary. 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 She was given a cortisone injection which helped a little, but now the pain is back. She reports difficulty and pain with reaching overhead, reaching back to her center console, and to take her shirt off. Pain Assessment Self Report Pain Assessment Right Shoulder(s) Reported Pain Level 0 Pain Description Sharp Pain Frequency Acute,Intermittent Lowest Pain Intensity 0 Greatest Pain Intensity 5 Pain Aggravating Factors ADL's,Lifting Patient Upper Extremity Range of Motion Right Shoulder Flexion - Active 138 Shoulder Flexion - Passive 165 Shoulder Abduction - Active 135 Shoulder Abduction - Passive 160 Shoulder Medial Rotation - Passive 35 Shoulder Medial Rotation - Active T10 Shoulder Lateral Rotation - Passive 70 Shoulder Lateral Rotation - Active T2 Scapular/Shoulder Range of Motion L shoulder active flexion: 145 Comments L shoulder active abduction:145 L shoulder functional medial/ lateral rotation: T8, T2 Upper Extremity Muscle Strength Testing Gross Upper Extremity Strength Comments L shoulder flexion 4+/5 L shoulder abduction 4+/5 L shoulder int/ext rot 4+/5, 4/5 R shoulder flexion 3+/5 -painful R shoulder abduction 4-/5 - pain reported with resistance R shoulder int/ext rot 4/5, 3+/5 Dev elbow flexion/extension 4+ /5 Muscle Length Testing Pectoralis Major Muscle Length (R) Mild Tightness,(L) Mild Tightness Posture Shoulder Posture (L) Rounded,(R) Rounded Palpation Assessment Palpation ten
--- NOTE | 2022-06-06 14:02 | PCPTNOTE ---
Patient no showed this date. Called and spoke to patient who states she did not have an appointment today on her sheet.
[2022-06-24 12:35] VITALS: BP_SYST 165
--- NOTE | 2022-06-24 13:24 | PTOPPROG ---
Evaluation Information Assessment Status Evaluation Diagnosis R shoulder pain Subjective Information Pt states she feels like her shoulder has gotten mildly better. She states she has began to avoid using her R UE because she knows its going to hurt . She reports good compliance with her exercises at home, but that they are still really difficult. She states she cannot recall anything that has gotten better. Pt states she fell ~ 2 weeks ago in her garden, she is unsure if this hurt her shoulder more or not. Pt reports 10/10 pain at the worst in the last week. Assessment PT Clinical Summary Matheus presents to therapy today she her progress report following 4 visits of skilled therapy and a month participation in a HEP. Today she reports 30% improvement in overall symptoms. However, she demonstrates decreased active ROM in all directions then date compared to her initial evaluation. During forward flexion she first reports pain at 50 deg, she is able to tolerate this and move to 120 deg of flexion before she has to stop. Active flexion was 138 deg at her initial visit. She has not be able to tolerate any exercises progression either. She has been performing isometrics and limited ROM with concentric motions. It was recommended that patient follow up with referring provider prior to continuing therapy. If approved, pt will be seen 2x/wk for 4 wks to progress towards managed pain and therapy goals. Plan of Care Interventions Electrical Stimulation,Hot Pack/Cold Pack,Manual Therapy,Neuro Re-education,Patient/Caregiver Educati,Therapeutic Activities,Therapeutic Exercise PT Services Indicated Yes Treatment Frequency and 2x/wk for 4 wks, pending follow up with referring Duration provider These treatments will address the objective and functional deficits as defined above. The patient will be advanced safely and appropriately in order for the patient to progress towards his/her prior level of function. Additional exercises will be introduced and as well as a comprehensive home exercise program upon discharge, if needed, ?to ensure carryover of functional gains achieved in the clinic. This treatment plan has been reviewed and agreement upon by the patient.
--- NOTE | 2022-06-27 13:54 | PCPTNOTE ---
Patient no showed to appointment this date.
--- NOTE | 2022-07-02 16:33 | PCPTNOTE ---
Patient no showed to appointment this date.
--- NOTE | 2022-07-04 12:26 | PCPTNOTE ---
Patient reports she has an MRI this coming Friday and told to hold off on treatments until her imaging. Will cancel further treatments until patient or doctor contacts office with results.
--- NOTE | 2022-07-23 08:59 | PTOPDC ---
Assessment and note entered by Alon Burris, PT, DPT Evaluation Information Assessment Status Discharge - Pt not present Diagnosis R shoulder pain Subjective Information Pt called to today and confirmed that she is having surgery. She states she will return to therapy after surgery. Discharge Summary Matheus has completed 4 visits of skilled therapy from 05/24/22 to 06/24/22. Per her orthopedic doctor she is going to have surgery. She will be discharged from skilled therapy services at this time. She will need a new order when she is to return to therapy. Treatment Frequency to be d/c'ed
== END 2022-07-22 14:24 | disposition home or self-care (01) ==
LOC: ANHGOSHPT 12:30
PROVIDERS: PCP Internal Medicine; Visit Provider Nurse Practitioner
DX: M25.511 Pain in right shoulder (principal)
CPT/HCPCS: 97035; 97110; 97140; 97161; 99199

== ENCOUNTER 2022-07-08 15:57 | Outpatient (CLI) | payer MEDICARE, OTHER, SELFPAY ==
--- NOTE | ~2022-07-08 | MR_ITS ---
EXAMINATION: MR shoulder RT wo con DATE: 07/08/2022 16:38 INDICATION: Right shoulder pain. TECHNIQUE: Magnetic resonance imaging (MRI) of the right shoulder was performed without intravenous c ontrast. Sequences included axial PD-weighted FS FSE, coronal oblique PD-weighted FS FSE, coronal obl ique T2-weighted FS FSE, sagittal PD-weighted FS FSE, and sagittal T1-weighted SE. COMPARISON: None. FINDINGS: Coracoacromial arch: The acromion undersurface is curved in morphology (type II). The acromion is thinned and there are fo ci of susceptibility in the soft tissues along the lateral and inferior margin of the acromion consis tent with prior acromioplasty. The coracoacromial ligament is normal. Minimal acromioclavicular osteo arthritis. Rotator cuff: Severe supraspinatus and moderate infraspinatus tendinopathy. Full-thickness tear involving the major ity supraspinatus tendon as well as the conjoined supraspinatus and infraspinatus tendons. The tear m easures 1.5 cm AP along the superior facet footplate and 2.8 cm medial to lateral with the retracted tear margin positioned slightly medial to the apex of the humeral head. A small frayed portion of the anterior most supraspinatus tendon remains attached at the anteriormost superior facet. Tiny foci of susceptibility artifact along the superior and middle facets of the greater tuberosity which could b e related to an earlier rotator cuff repair. Correlate with surgical history. The teres minor and sub scapularis tendons are normal. There is both medial retraction and mild fatty atrophy of the supraspi natus muscle belly. Biceps tendon, glenoid labrum and glenohumeral cartilage: Long head of the biceps tendon is normal. Likely degenerative tearing of the small inferior and poste rior inferior labrum. Diffuse partial thickness cartilage loss along the glenoid with smooth chondral surface. Tiny marginal osteophytes along the inferior glenoid. Fluid: Small glenohumeral joint effusion with proportional extension of a small amount of fluid into the ana g head biceps tendon as well as through the full-thickness rotator cuff tear defect into the subacrom ial/subdeltoid bursa. Mild synovitis at the axillary recess. No loose osteochondral bodies. Bones: Normal marrow signal with no edema, fracture or abnormal marrow replacing process. IMPRESSION: 1. Full-thickness tear of the supraspinatus and conjoined supraspinatus and infraspinatus tendons whi ch may represent a recurrent tear. Suggestion of prior rotator cuff repair with foci of susceptibilit y artifact along the greater tuberosity. Correlate with surgical history. 2. Mild glenohumeral osteoarthritis with likely chronic degeneration of the inferior posterior inferi or glenoid labrum. 3. Additional postoperative change of likely acromioplasty. Reviewed, dictated and finalized at location A. IMPRESSION: 1. Full-thickness tear of the supraspinatus and conjoined supraspinatus and inf raspinatus tendons which may represent a recurrent tear. Suggestion of prior ro tator cuff repair with foci of susceptibility artifact along the greater tubero sity. Correlate with surgical history. 2. Mild glenohumeral osteoarthritis with likely chronic degeneration of the inf erior posterior inferior glenoid labrum. 3. Additional postoperative change of likely acromioplasty.
== END 2022-07-08 15:58 | disposition home or self-care (01) ==
PROVIDERS: PCP Internal Medicine; Visit Provider Nurse Practitioner
DX: M19.011 Primary osteoarthritis, right shoulder (principal); S43.491A Other sprain of right shoulder joint, initial encounter; X58.XXXA Exposure to other specified factors, initial encounter
CPT/HCPCS: 73221

== ENCOUNTER 2022-08-06 12:24 | Outpatient (CLI) | payer MEDICARE, MEDICAID, SELFPAY ==
--- NOTE | 2022-08-06 12:39 | ECG_ITS ---
Measurements Intervals [place] Rate: 77 P: 38 MA: 156 QRS: 10 QRSD: 109 T: 16 QT: 408 QTc: 464 Interpretive Statements SINUS RHYTHM INCOMPLETE RIGHT BUNDLE BRANCH BLOCK [90+ ms QRS DURATION, TERMINAL R IN V1/V2, 40+ ms S IN I/aVL/V4/V5/V6] NO PREVIOUS ECG AVAILABLE FOR COMPARISON Electronically Signed On 08-07-2022 14:32:49 CDT by Hazel Martinez M.D.
[2022-08-06 13:03] LABS: Anion Gap 11 mmol/L (8-16); Blood Urea Nitrogen 13 mg/dL (7-17); Calcium 9.5 mg/dL (8.4-10.2); Carbon Dioxide 32 mmol/L (22-30); Chloride 100 mmol/L (98-107); Estimated Glomerular Filt Rate > 60; Glucose 117 mg/dL (65-110); Sodium 143 mmol/L (137-145)
[2022-08-06 13:07] LABS: INR 1.1; Prothrombin Time 13.7 Seconds (11.1-14.7)
[2022-08-06 13:08] LABS: Partial Thromboplastin Time 36.7 SECONDS (22.3-36.8)
== END 2022-08-06 12:25 | disposition home or self-care (01) ==
LOC: ANHSURGERY 12:30
PROVIDERS: Anesthesiology; PCP Internal Medicine; Visit Provider Orthopaedic Surgery
DX: E11.9 Type 2 diabetes mellitus without complications (principal); K76.0 Fatty (change of) liver, not elsewhere classified; Z01.818 Encounter for other preprocedural examination; I45.10 Unspecified right bundle-branch block
CPT/HCPCS: 36415; 80048; 85610; 85730; 93005

== ENCOUNTER 2022-08-12 01:46 | Day surgery (SDC) | payer MEDICARE, MEDICAID, SELFPAY ==
[2022-08-02 09:40] VITALS: BMI 25.1
--- NOTE | 2022-08-02 09:52 | PC.NURSE ---
PRE-OP INSTRUCTIONS, PLEASE CAREFULLY Report to the Outpatient Waiting Room, entrance under the green pavilion located off [facility], at time _0600_ on date _08/12/22_. OR Time: _0730_. Time changes happen often and if your time is changed the preop area will call you the afternoon before. - You and your visitor will be asked to self-screen and do not enter if you have any COVID symptoms. - We encourage only one visitor and NO visitors under age 16 are allowed at this time. Your visitor will receive communication by the phone number that is given day of service. - The patient visitor is requested to social distance or may leave the building when not with patient due to restrictions. - A mask is required within the hospital. Patients may have clear liquids (water, carbonated beverages, clear teas, apple juice) until 3 hours prior to surgery (0430 AM) with a maximum of 20 ounces. - No food from midnight until time of surgery Take the following medications with a SIP of water the morning of surgery: _AMLODIPINE, SERTRALINE_ Medications to discontinue per ANESTHESIA - _MILK THISTLE & FISH OIL 3 DAYS PRIOR TO SURGERY, Date to take last dose 08/08/22_ Please no make-up, nail arabic, hairspray, perfume, deodorant, or body powder the day of surgery. No jewelry (including any body piercings) or valuables the day of surgery, leave them at home. Please take a shower or bath the night before, or the morning of, surgery with an antibacterial soap. Wear comfortable, loose fitting clothing. Children are encouraged to wear pajamas. - Jewelry must be removed prior to entering the operating room. Rings and piercings that are not removed may be cut off. - The hospital will not accept responsibility for valuables. - Please leave all valuables, including medications, at home the day of surgery. If you are going home after surgery, a licensed show horse driver must drive you home. - NO public transportation without another adult. - We recommend that an adult stay with you for 24 hours following discharge. - We also recommend that you do not drive, make important decision, drink alcoholic beverages, or take any drugs that were not prescribed by your health care provider for at least 24 hours after your discharge time. Follow any additional instructions given to you from your surgeon. If you or anyone in your household have experienced Covid symptoms in the past week, please notify your surgeon or the nurse liaison at the phone number below for possible testing. Telephone instructions given to ____PT and asked if any additional questions and then verbalized understanding. Patient advised to call surgeon office or pre surgery nurse liaison [phone] if any additional questions.
[2022-08-12] VITALS (7 sets, daily range): BP systolic 110–154; BP diastolic 67–82; PULSE 70–82; RESP 12–18; TEMP 36.1–36.4; O2SAT 96–100
--- NOTE | 2022-08-12 07:33 | WPDANESEPPF ---
Anes - Initial Pre Proc Eval Procedure: Operation Date: 08/12/22 07:30 Proposed Procedures p Right Rotator Cuff Repair - Narciso Lawrence MD Date/Time: 08/12/22 07:33 Surgeon: Narciso Lawrence MD Pre Op Diagnosis: Right Rot Cuff Tear Patient Data Age: 66 Gender: F Height: 1.7 m Weight: 72.72 kg Allergies Allergy/AdvReac Type Severity Reaction Status Date / Time Sulfa (Sulfonamide Allergy Unknown Unknown-LAST Verified 08/12/22 07:33 Antibiotics) RECEIVED 1980 Home Medications Medication Instructions Recorded Confirmed Type amlodipine 5 mg tablet 5 mg PO QAM 10/14/19 08/07/22 History losartan 100 1 tablet PO QAM 10/14/19 08/07/22 History mg-hydrochlorothiazide 12.5 mg tablet sertraline 50 mg tablet 50 mg PO QAM 10/14/19 08/07/22 History semaglutide 0.25 mg or 0.5 mg (2 1.5 ml subcut WEEKLY 11/21/20 08/07/22 History mg/1.5 mL) subcutaneous pen injector (Ozempic) milk thistle 175 mg tablet 175 mg PO QAM 03/06/21 08/07/22 History omeprazole 20 mg tablet,delayed 20 mg PO QAM 03/06/21 08/07/22 History release ropinirole 0.5 mg tablet 0.5 mg PO HS 03/06/21 08/07/22 History trazodone 50 mg tablet 50 mg PO HS 03/06/21 08/07/22 History omega 4-rqg-poe-fish oil 1,000 mg 1 cap PO QAM 08/02/22 08/07/22 History (120 mg-180 mg) capsule (Fish Oil) Patient hx anesthesia problems: none Family hx anesthesia problems: none Results Review: All pre-operative results and documents have been reviewed as part of the pre-operative evaluation. [facility] Past Medical History Medical History BMI 30.0-30.9,adult Diabetes 11/08/20 A1C=5.7 GERD (gastroesophageal reflux disease) Hyperlipidemia Hypertension Right rotator cuff tear Type 1 diabetes mellitus with hemoglobin A1c goal of less than 7.0% Ureter cancer Surgical History Surgical History History of hysterectomy History of left knee replacement Surgery March 19, 2021 History of nephrectomy 01/2019 History of rotator cuff surgery History of surgery on wrist Social History Social History Smoking status: Never smoker Second hand tobacco smoke exposure: No Alcohol intake: current Drinks per week: 6 Substance use: never Substance use type: does not use Other substance usage details: [employer] CARD - [employer], 1/2 GUMMY EVERY OTHER DAY Additional living arrangements comments: LIVES WITH SIGNIFICANT OTHER Spiritual care concerns: No Anes - Eval Final PreProcedure Day of Procedure 08/12/22 07:33 Patient weight: overweight Heart: regular rate and rhythm Lungs: clear to auscultation Airway: Mallampati scale class III Neurological: alert and oriented Last oral intake: >/= 8 hours ASA classification: III Emergent: no Anesthetic plan: proceed Anesthesia type and monitoring: general ETT and standard monitoring Results Review: All pre-operative results and documents have been reviewed as part of the pre-operative evaluation. Informed Consent: The patient's anesthetic plan and its attendant risks and benefits were discussed with the patient/family/POA. Questions were solicited and answers provided to the satisfaction of the patient/family/POA.
--- NOTE | 2022-08-12 07:34 | WPDANESPNB ---
Anes - Peripheral Nerve Block Date/Time: 08/12/22 07:34 I have discussed with the patient/family/POA the placement of a peripheral nerve block for post-operative pain management, including associated risks, benefits, complications, and side effects. Alternative methods of post-operative analgesia were detailed. Questions were solicited and answers provided to the satisfaction of the patient/family/POA. Time-Out: A pre-procedural Time-Out was completed immediately before starting the procedure and confirmed: Patient Identification, Site, Procedure, Patient Position and the Availability of Requisite Equipment. Clinical Indications: Acute post-operative pain management requested by the operative surgeon. Nerve Block Insertion Note Anes-nerve block: interscalene right Patient position: supine Skin prep: chlorhexidine Needle: 22 gauge, stimulating, insulated echogenic needle. Needle length: 50 mm Technique: ultrasound Injectate: bupivacaine 0.5% with epi 5 mcg/ml (30cc- no epi) Observations: tolerated well Complications: none Procedure start time:: 800 Procedure end time:: 803
[2022-08-12] MEDS: ACETAMINOPHEN 500 MG TABLET 1000 MG PO (07:35)
[2022-08-12] MEDS: LACTATED RINGERS 1,000 ML 30 ML IV CONT (07:40)
[2022-08-12] MEDS: KETOROLAC 15 MG/ML VIAL (*BKC) IV PUSH (07:42)
--- NOTE | 2022-08-12 07:45 | WPDHPUPDATE1 ---
History and Physical Update Update Date/Time: 08/12/22 07:45 History and Physical has been reviewed, including an updated exam of the patient. There are NO changes in the patient's condition. Risks, benefits, and alternatives have been discussed and questions answered. Patient agrees to proceed with procedure.
[2022-08-12 07:48] LABS: Glucose Point of Care 110 mg/dl (65-105)
[2022-08-12] MEDS: ceFAZolin 2 GM/D5W 50 ML 2 GM/50 ML BAG IVPB (08:10)
[2022-08-12] MEDS: BUPIVACAINE/EPINEPHRINE 0.25% 50 ML VIAL INFILTRATE (09:11)
--- NOTE | 2022-08-12 09:37 | W.PM.PROC2 ---
Procedure Note - Detailed Date of Procedure 08/12/22 Pre-op Diagnosis Right Rot Cuff Tear Post-op Diagnosis Same Procedure Performed Revision right rotator cuff repair Surgeon Narciso Lawrence MD [facility] General and Regional Description of Procedure Patient was identified and proper site identified. In the preop holding area the anesthesia team performed a right upper extremity block. She was then taken to the operating room and transferred to the or table taking care to pad the torso and extremities. After general anesthetic induction and intubation, she was put in a semi beach chair position in the usual manner for a right shoulder procedure. Her head was secured taking care to neither rotate nor extend the head and neck. The right upper extremity was prepped and draped free in usual sterile fashion. The subcutaneous tissue in the area of the incision was injected with 10 cc of 0.25% Marcaine and epinephrine solution. An oblique anterior incision was made extending from the AC joint distally in line with the fibers of the deltoid. Subcutaneous tissue was sharply dissected down to the deltoid fascia. The deltoid was dissected off the anterior portion of the acromion. A 2 cm split was made at the junction between the anterior and middle thirds of the deltoid. The saw was used to perform the acromioplasty and then the undersurface of the acromion was rasped smooth. There was some thickened bursa which was sharply debrided allowing for inspection of the cuff. There was an oblique tear through the supraspinatus. There is also large spur the anterior-most portion of the greater tuberosity. The spur was debulked. Edges of the tendon were freshened up. Tendon was able to be repaired in a [id number] fashion with 2. Ethibond suture. 2. Ethibond was also used to secure it back to the prepared greater tuberosity. This gave a ross repair which was stable as the shoulder was taken through range of motion. The wound was irrigated with sterile NaCl solution. The deltoid was repaired back to the acromion with 2. Ethibond suture passed through bone and the remainder of the deltoid repair carried out with 2. Vicryl. Subcutaneous tissue was reapproximated with 3-0 Strata fix and then tissue adhesive used for the skin. Sterile dressing was applied. There were no known intraoperative complications, and perioperative antibiotics were administered. Estimated Blood Loss -20.0 Drains No Packing No Pathology None sent Complications No immediate complications Condition Stable Disposition PACU
[2022-08-12 10:20] LABS: Glucose Point of Care 123 mg/dl (65-105)
--- NOTE | 2022-08-12 12:10 | SUR.PHASEII ---
1200- discharge time was inadvertantly put in prior to completing chart. postop educ. done and pt and family expressed understanding. vs remain stable. neurovascular checks unchanged. IV catheter removed intat and dressing applied.
== END 2022-08-12 11:53 | disposition home or self-care (01) ==
PROVIDERS: PCP Internal Medicine; Visit Provider Orthopaedic Surgery
PROC: (CPT 23420; principal; 2022-08-12 07:30)
DX: M75.101 Unspecified rotator cuff tear or rupture of right shoulder, not specified as traumatic (principal); G89.18 Other acute postprocedural pain; I10 Essential (primary) hypertension; E78.5 Hyperlipidemia, unspecified; E10.9 Type 1 diabetes mellitus without complications; K21.9 Gastro-esophageal reflux disease without esophagitis; Z79.899 Other long term (current) drug therapy; Z90.5 Acquired absence of kidney; Z85.54 Personal history of malignant neoplasm of ureter; F12.90 Cannabis use, unspecified, uncomplicated
CPT/HCPCS: 23412; 64415; 82948; A4565; A9270; J0330; J0690; J1100; J1885; J2250; J2405; J2704; J3010; J7120

== ENCOUNTER 2022-09-11 14:45 | Outpatient (RCR) | payer MEDICARE, MEDICAID, SELFPAY ==
--- NOTE | 2022-08-16 15:40 | PTOPEVAL1 ---
Assessment and note entered by Marianne Goode DPT Evaluation Information Assessment Status Evaluation Reported Pain Level Additional Pain Score Comments Patient reports constant pain 10/10 since R RC repair on 08/12/22. Pt reports wearing a sling at all times except to shower or if just sitting still. Pain and sling are contributing to difficulty sleeping, dressing, cooking, and cleaning as patient is R hand dominant. She reports no relief of pain with medication. Assessment PT Clinical Summary Pt is presenting to skilled therapy following a R RCR on 08/12/22. She presents with significant pain and limitations with most ADL's due to recent surgical status, pain, and sling use. She will highly benefit from therapy to address her pain, ROM, and eventual strength in order to return safely to [facility]. Plan of Care Interventions Electrical Stimulation,Hot Pack/Cold Pack,Manual Therapy,Neuro Re-education,Patient/Caregiver Education,Therapeutic Activities,Therapeutic Exercise PT Services Indicated Yes Treatment Frequency and 2-3 times a week for 4 weeks Duration These treatments will address the objective and functional deficits as defined above. The patient will be advanced safely and appropriately in order for the patient to progress towards his/her prior level of function. Additional exercises will be introduced and as well as a comprehensive home exercise program upon discharge, if needed, ?to ensure carryover of functional gains achieved in the clinic. This treatment plan has been reviewed and agreement upon by the patient.
--- NOTE | 2022-08-19 16:45 | PCPTNOTE ---
Pt rescheduled appointment for tomorrow due to going to [facility] instead of [facility].
[2022-09-11 15:21] VITALS: BP_SYST 128
--- NOTE | 2022-09-11 16:46 | PTOPPROG ---
Assessment and note entered by Alon Burris, PT, DPT Evaluation Information Assessment Status Progress Diagnosis R shoulder RCT repair Onset 08/12/22 Subjective Information Pt states her shoulder continues to hurt anytime she tries to reach out for something or up over her head. She states it is still difficult to sleep. Pt reports 80% improvement in overall symptoms. She reports 0/10 pain at rest and 8/10 with overhead motions. Assessment PT Clinical Summary Matheus presents to therapy today for her progress report following 7 visits of skilled therapy. Today she reports high pain levels with any active motion. She demonstrates active flexion to 72 deg and active abduction to 60 deg, passive flexion to 140 and passive abduction to 120. She continues to require frequent cueing to minimize substitutions during treatments. She is making slow progress towards her therapy goals and compliance with exercises is questionable. Continuation of skilled physical are indicated to address the deficits noted above, to help manage pain, to improve ROM, and to limit functional impairments. Plan of Care Interventions Electrical Stimulation,Hot Pack/Cold Pack,Manual Therapy,Neuro Re-education,Patient/Caregiver Educati,Therapeutic Activities,Therapeutic Exercise PT Services Indicated Yes Treatment Frequency and 2x/wk for 5 wks Duration These treatments will address the objective and functional deficits as defined above. The patient will be advanced safely and appropriately in order for the patient to progress towards his/her prior level of function. Additional exercises will be introduced and as well as a comprehensive home exercise program upon discharge, if needed, ?to ensure carryover of functional gains achieved in the clinic. This treatment plan has been reviewed and agreement upon by the patient.
--- NOTE | 2022-09-24 11:44 | PCPTNOTE ---
Patient called to cancel this date due to being called into work.
--- NOTE | 2022-09-26 10:08 | PCPTNOTE ---
Patient did not show up for scheduled appointment this date.
--- NOTE | 2022-09-26 10:10 | PTOPDC ---
Assessment and note entered by Alon Burris, PT, DPT Evaluation Information Assessment Status Discharge - Pt Not Present Diagnosis R shoulder RCT repair Onset 08/12/22 Subjective Information Pt did not show up for her treatment this date. Called pt to follow up and she reports that her referring provider has cleared her from therapy and she no longer needs to continue. Assessment PT Clinical Summary Matheus has completed 8 visits of therapy from 08/16 to 09/11/22. She will be discharged at this time. If she needs to continue therapy at a later date, she will need a new order. Plan of Care Treatment Frequency and to be discharged Duration
== END 2022-09-27 10:53 | disposition home or self-care (01) ==
LOC: ANHGOSHPT 14:45
PROVIDERS: PCP Internal Medicine; Visit Provider Orthopaedic Surgery
DX: Z48.89 Encounter for other specified surgical aftercare (principal); Z98.890 Other specified postprocedural states
CPT/HCPCS: 97014; 97110; 97112; 97140; 99199; G0283

== ENCOUNTER 2024-11-10 14:36 | Outpatient (CLI) | payer MEDICARE, OTHER, SELFPAY ==
--- NOTE | ~2024-11-10 | XR_ITS ---
XR lumbar spine 2-3V 11/10/2024 15:09 Indication: Low back pain Procedure: 4 views lumbar spine Comparison: No prior studies for comparison. Findings: There is disc narrowing at all lumbar levels. There is degenerative anterolisthesis at L4-5 and retrolisthesis at L2-3. There is multilevel facet hypertrophy most severe at L5-S1. There is mil d levocurvature of the lumbar spine. Sacral foramen are symmetric. Impression: 1: Moderate lumbar spondylosis. Reviewed, dictated and finalized at location A. UTIVE MANAGER Impression: 1: Moderate lumbar spondylosis.
== END 2024-11-10 14:37 | disposition home or self-care (01) ==
LOC: ANHIMG 14:45
PROVIDERS: PCP Internal Medicine; Visit Provider Internal Medicine Endocrinology, Diabetes & Metabolism
DX: S39.92XA Unspecified injury of lower back, initial encounter (principal); X58.XXXA Exposure to other specified factors, initial encounter; M47.896 Other spondylosis, lumbar region
CPT/HCPCS: 72100

== ENCOUNTER 2024-11-16 10:52 | Outpatient (CLI) | payer MEDICARE, OTHER, SELFPAY ==
--- NOTE | ~2024-11-16 | XR_ITS ---
HISTORY: Acute upper respiratory infection, POSTERIOR PAIN AFTER FALL COMPARISON: 08/30/2024 TECHNIQUE: Multiple views of the bilateral ribs were performed along with a frontal view of the chest FINDINGS: The cardiomediastinal silhouette is unremarkable. The lungs are clear. No acute or subacute displaced rib fracture is appreciated. IMPRESSION: No acute or subacute displaced bilateral rib fracture is appreciated. The lungs are clear. Reviewed, dictated and finalized at location A. LAB TECH
--- OUTSIDE RECORDS SUMMARY | 2024-11-18 17:37 | XMS_ITS | Data Portability ---
Author Organization [facility], Main Office Address [address] [place] [address] Care Team Providers Care Program Management Intern Name Role Phone AMANDA LEDEZMA Primary Care Provider AMANDA LEDEZMA Referring Provider SUZIE AGARWAL Urologist ENMANUEL SANCHEZ Tax Lawyer JEFE LUKE Tax Lawyer VANESSA ANDRADE Curing Supervisor Assessment Encounter Date Assessment Date Assessment LastModified by Organization Details LastModified Time 02/24/2023 02/24/2023 10/04/2022: A1C 5.4 Gluc 125, ALT/AST 58/43 Chol 233, LDL 113 Not available 02/24/2023 17:56:20 08/23/2024 08/23/2024 10/04/2022: A1C 5.4 Gluc 125, ALT/AST 58/43 Chol 233, LDL 113 08/18/2024: A1C 5.2 VIT D 29.9 Gluc 109, ALT/AST 56/54 Not available 08/23/2024 14:51:48 11/15/2024 11/15/2024 10/04/2022: A1C 5.4 Gluc 125, ALT/AST 58/43 Chol 233, LDL 113 08/18/2024: A1C 5.2 VIT D 29.9 Gluc 109, ALT/AST 56/54 Not available 11/15/2024 11:34:03 Plan of Treatment Reminders Order Date Submit Date Provider Last Modified By Organization Details Last Modified Time Details Appointments Medicare Wellness 15 2024 01:00P M Amanda nayak MD Not available Not available Not available Lab pancreati c elastase, stool 2022 023 [email or web address] Not available 12/30/2022 15:10:38 fecal fat, qualitati ve, stool 2022 023 [email or web address] Not available 12/30/2022 15:10:38 O&P (ova & parasites ), stool 2022 023 KATHI Not available 01/10/2023 15:14:40 food allergen panel, serum 2022 023 KATHI Not available 01/08/2023 20:28:54 celiac disease comprehen sive panel, serum 2022 023 ATHENAFAX Not available 12/30/2022 15:10:39 lipid panel, serum 2022 023 [email or web address] Not available 12/30/2022 15:10:38 TSH, serum or plasma 2022 023 ATHENAFAX Not available 12/30/2022 15:10:38 T4, free, serum 2022 023 [email or web address] Not available 12/30/2022 15:10:38 CMP, serum or plasma 2022 023 ATHENAFAX Not available 12/30/2022 15:10:38 HbA1c (hemoglob in A1c), blood 2022 023 ATHENAFAX Not available 12/30/2022 15:10:39 insulin, serum 2022 023 ATHENAFAX Not available 12/30/2022 15:10:39 lipid panel, serum 2022 023 [email or web address] Not available 10/30/2023 09:22:13 CMP, serum or plasma 2022 023 [email or web address] Not available 10/30/2023 09:22:30 CBC w/ auto diff 2022 023 [email or web address] Not available 10/30/2023 09:22:59 TSH + free T4, serum 2022 023 [email or web address] Not available 10/30/2023 09:23:18 vitamin D, 25-hydrox y, total, serum 2022 023 Not available 10/30/2023 09:21:56 microalbu min, urine 2022 023 KATHI Not available 07/15/2023 19:26:17 HbA1c (hemoglob in A1c), blood 2022 023 [email or web address] Not available 10/30/2023 09:23:34 lipid panel, serum 2023 024 Not available 08/23/2024 14:58:28 CMP, serum or plasma 2023 024 Not available 08/23/2024 14:58:29 CBC w/ auto diff 2023 024 Not available 08/23/2024 14:58:29 TSH + free T4, serum 2023 024 Not available 08/23/2024 14:58:29 vitamin D, 25-hydrox y, total, serum 2023 024 Not available 08/23/2024 14:58:28 microalbu min, urine 2023 024 Not available 08/23/2024 14:58:28 HbA1c (hemoglob in A1c), blood 2023 024 Not available 08/23/2024 14:58:29 vitamin D, 25-hydrox y, total, serum 2024 025 les laMary Alice [facility] ([facility]), [address] [place], [address], 11/15/2024 12:21:32 glycohemo globin, total, blood [address] (Lab), [address] [place], [address], 11/15/2024 12:21:31 microalbu min, urine [address] (Lab), [address] [place], [address], 11/15/2024 12:21:31 lipid panel, serum [address] (Lab), [address] [place], [address], 11/15/2024 12:21:31 CBC w/ auto diff [address] (Lab), [address] [place], [address], 11/15/2024 12:21:31 TSH, serum or plasma [address] (Lab), [address] [place], [address], 11/15/2024 12:21:31 CMP, serum or plasma [address] (Lab), [address] [place], [address], 11/15/2024 12:21:31 Referral gastroent erologist referral 2022 023 mary alice Luke MD, [address] [place], [address], 04/07/2023 11:20:46 gastroent erologist referral 2022 023 mary alice Sanchez MD, [address], [place], [address], 04/07/2023 11:21:34 gastroent erologist referral 2022 023 [email or web address] Enmanuel Sanchez MD, [address], [place], [address], 04/07/2023 11:21:33 cardiolog ist referral 2022 023 [email or web address] Vanessa Andrade, [address], [place], [address], 2023 15:00:10 podiatris t referral 2022 023 [email or web address] Lillian Wahl DPM, [address] [facility] [place], [address], 2023 15:00:08 dermatolo gist referral 2022 023 [email or web address] Vitaliy Santoro MD, [address] [place], [address], 2023 15:00:12 physical therapist referral - Please call patient to schedule. 2023 024 [email or web address] [facility], [address], [place], [address], 10/25/2024 16:56:33 cardiolog ist referral - Please call patient to schedule. 2023 024 KATHI Andrade, [address], [place], [address], 10/25/2024 15:20:47 gastroent erologist referral 2023 024 [email or web address] Jefe Luke MD, [address] [place], [address], 09/27/2024 16:00:36 endocrino logy referral - Please call patient to schedule. 2023 024 [place], [address] , [place], [address], 10/28/2024 09:37:39 gastroent erologist referral 2023 024 [email or web address] Enmanuel Sanchez MD, [address], [place], [address], 08/23/2024 18:25:50 gastroent erologist referral 2023 024 [email or web address] Enmanuel Sanchez MD, [address], [place], [address], 08/23/2024 18:25:49 podiatris t referral - Please call patient to schedule. 2023 024 [email or web address] Zen Holley DPM, [address], [place], [address], 10/28/2024 09:37:38 dermatolo gist referral - Please call patient to schedule. 2023 024 [email or web address] Vitaliy Santoro MD, [address] [place], [address], 10/28/2024 09:37:38 podiatris t referral 2024 025 les [email or web address] Enzo Tomlinson DPM, [address], [address], [place], [address], 11/15/2024 12:21:31 Procedures None recorded. Surgeries None recorded. Imaging MAMMO, screening , digital, bilateral 2022 023 [email or web address] Not available 10/30/2023 09:29:23 DEXA, axial skeleton 2022 023 [email or web address] Not available 10/30/2023 09:29:40 MAMMO, screening , digital, bilateral - Please call patient to schedule. 2023 024 [email or web address] Not available 09/27/2024 14:50:33 DEXA, axial skeleton - Please call patient to schedule. 2023 024 [email or web address] Not available 10/28/2024 09:37:22 XR, chest, 3 view - STAT HOLD AND CALL DR ELTON NAYAK 2024 025 [facility], [address], [place] [address], [place], [address], 11/16/2024 14:49:51 Medication Orders levofloxa ness 750 mg tablet [email or web address] [place] [address] [facility], [address], [place], [place], [id number], 11/15/2024 12:21:32 Repatha SureClick 140 mg/mL subcutane ous pen injector [email or web address] [place] [address] [facility], [address] [place] [address] [address], [place], [place], [id number], 11/15/2024 12:21:31 Patient TargetsNo targets recorded. Patient Instructions Encounter Date Encounter Id Patient Instructions Last Modified By Organization Details Last Modified Time 02/24/2023 [id number] diabetic eye exam* Not availa ble 08/28/2023 14:26:28 08/23/2024 [id number] dementia rating scale-2* [email or web address] Not available 08/31/2024 13:55:36 alcohol misuse* [email or web address] Not available 08/31/2024 13:55:43 depression screening* [email or web address] Not available 08/31/2024 13:55:48 Timed Up and Go test (TUG)* [email or web address] Not available 08/31/2024 13:55:56 multi-dimensiona l health assessment questionnaire* Not available 08/31/2024 13:55:21 advance directiv es: care instructions Not available 08/23/2024 14:58:29 [place] Advance Directives Not available 08/23/2024 14:58:29 advance care planning: care instructions Not available 08/23/2024 14:58:29 diabetic eye exam* [email or web address] Not availab le 08/23/2024 15:07:30 Personalized [facility] Plan and Screening Recommendations Advance Directives - Do you have one? Advance Directives - Do we have your advance directive on file in your health record? Primary Prevention/Interven tion (prevents or decreases the chance of common diseases from occurring) Smoking Risk: Alcohol Misuse Screening: Weight: Physical activity: Nutrition: Fall Risk (screened today): Vaccines Pneumococcal: Influenza: Chronic Disease Risks Stroke: I have no recommendations Active diagnosis, Continue current treatment plan Heart Attack: I have no recommendations Act austin diagnosis, Continue current treatment plan Clogging of the Arteries: I have no recommendations Act [place] diagnosis, Continue current treatment plan Diabetes: Secondary Prevention/Interven tion (detects treatable diseases before they may cause symptoms, disability, or ) Breast Cancer Screening with mammogram: Cervical/Uterine/Ov kyaw Cancer Screening: Osteoporosis Screening: Date Screening Last Performed: Colon Cancer Screening: Date Screening Last Performed: Eye Disease Screening: Dementia Risk: Depression Screening: [email or web address] Not available 08/04/2024 07:58:42 Reason for Referral Retail Sales Consultant Referral for Type 2 diabetes mellitus without complication Referring Physician: Clifford Stratton Medicine, Encounter Date: 02/24/2023 Tax Lawyer Referral for Increased liver function Referring Physician: Clifford Stratton Medicine, Encounter Date: 02/24/2023 Curing Supervisor Referral for Es sential hypertension Referring Physician: Clifford Stratton Medicine, Encounter Date: 02/24/2023 Computer Aided Drafter Referral for S kin lesion Referring Physician: Clifford Stratton Medicine, Encounter Date: 02/24/2023 Tax Lawyer Referral for Screening for malignant neoplasm of colon Referring Physician: Clifford Stratton Medicine, Encounter Date: 02/24/2023 Tax Lawyer Referral for Gastroesophageal reflux disease without esophagitis Referring Physician: Amanda Ledezma Internal Medicine, Encounter Date: 02/24/2023 Retail Sales Consultant Referral for Type 2 diabetes mellitus without complication Please call patient to schedule. Referring Physician: Amanda Ledezma Internal Medicine, Encounter Date: 08/23/2024 Tax Lawyer Referral for Increased liver function Referring Physician: Amanda Ledezma Internal Medicine, Encounter Date: 08/23/2024 Curing Supervisor Referral for Es sential hypertension Please call patient to schedule. Referring Physician: Amanda Ledezma Internal Medicine, Encounter Date: 08/23/2024 Computer Aided Drafter Referral for S kin lesion Please call patient to schedule. Referring Physician: Clifford Stratton Medicine, Encounter Date: 08/23/2024 Tax Lawyer Referral for Screening for malignant neoplasm of colon Referring Physician: Amanda Ledezma Internal Medicine, Encounter Date: 08/23/2024 Tax Lawyer Referral for Gastroesophageal reflux disease without esophagitis Referring Physician: Amanda Ledezma Internal Medicine, Encounter Date: 08/23/2024 Endocrinology Referral for H yperlipidemia Please call patient to schedule. Referring Physician: Clifford Stratton Medicine, Encounter Date: 08/23/2024 Physical Therapist Referral for Pain of left shoulder joint Please call patient to schedule. Referring Physician: Clifford Stratton Medicine, Encounter Date: 08/23/2024 Retail Sales Consultant Referral for Type 2 diabetes mellitus without complication Referring Physician: Clifford Stratton Medicine, Encounter Date: 11/15/2024 Results Created Date Observation Date Name Description Value Unit Range Abnormal Flag Note LastModifiedBy Organization Detail LastModifiedTime 01/04/2001/06/2023 JUNO C ANTIB ODIES PROFI LE T-transgluta minase IgA <2 U/mL 0-3 Negat austin 0 - 3 Weak Posit austin 4 - 10 Posit austin >10 . Tissu e Trans gluta eamon e (tTG) has been ident ified as the endom ysial antig en. Studi es have demon str- ated that endom ysial IgA antib odies have over 99% speci ficit y for glute n sensi tive enter opath y. Not Available [facility] (Lab) [address] [place], [address], 01/06/2023 15:09:10 01/04/20 23 01/06/2023 JUNO C ANTIB ODIES PROFI LE T-transgluta minase IgG <2 U/mL 0-5 Negat austin 0 - 5 Weak Posit austin 6 - 9 Posit austin >9 Not Available [facility] (Lab) [address] [place], [address], 01/06/2023 15:09:10 01/04/20 23 01/06/2023 JUNO C ANTIB ODIES PROFI LE deamidated gliadin abs, IgG 3 units 0-19 Negat austin 0 - 19 Weak Posit austin 20 - 30 Moder ate to Stron g Posit austin >30 Not Available [facility] (Lab) [address] [place], [address], 01/06/2023 15:09:10 01/04/20 23 01/06/2023 JUNO C ANTIB ODIES PROFI LE endomysial antibody IgA Negati ve negati ve Not Available [facility] (Lab) [address] [place], [address], 01/06/2023 15:09:10 01/04/20 23 01/06/2023 JUNO C ANTIB ODIES PROFI LE immunoglobul in A, qn, serum 161 mg/dL 87-352 Perfo rmed at: [facility] n [address] [facility], [place] [address] Lab Direc tor: Chung hull PhD, Phone : [phone] Not Available [facility] (Lab) [address] [place], [address], 01/06/2023 15:09:10 01/04/20 23 01/06/2023 JUNO C ANTIB ODIES PROFI LE deamidated gliadin abs, IgA 4 units 0-19 Negat austin 0 - 19 Weak Posit austin 20 - 30 Moder ate to Stron g Posit austin >30 Not Available [facility] (Lab) [address] [place], [address], 01/06/2023 15:09:10 01/04/20 23 01/08/2023 ALLER GENS (15) FOOD class description Commen t . Level s of Speci fic IgE Class Descr iptio n of Class ----- ----- ----- ----- ----- -- ----- ----- ----- ----- ----- < 0.10 0 Negat austin 0.10 - 0.31 0/I Equiv ocal/ Low 0.32 - 0.55 I Low 0.56 - 1.40 II Moder ate 1.41 - 3.90 III High 3.91 - 19.00 IV Very High 19.01 - 100.0 0 V Very High >100. 00 Very High Not Available [facility] (Lab) [address] [place], [address], 01/08/2023 19:08:35 01/04/20 23 01/08/2023 ALLER GENS (15) FOOD I969-JrQ egg white 0.12 kU/L class 0/I abnormal Not Available [facility] (Lab) [address] [place], [address], 01/08/2023 19:08:35 01/04/20 23 01/08/2023 ALLER GENS (15) FOOD C348-DqN peanut 0.49 kU/L class I abnormal Not Available [facility] (Lab) [address] [place], [address], 01/08/2023 19:08:35 01/04/20 23 01/08/2023 ALLER GENS (15) FOOD C525-AdW soybean 0.24 kU/L class 0/I abnormal Not Available [facility] (Lab) [address] [place], [address], 01/08/2023 19:08:35 01/04/20 23 01/08/2023 ALLER GENS (15) FOOD D045-RlF milk <0.10 kU/L class 0 Not Available [facility] (Lab) [address] [place], [address], 01/08/2023 19:08:35 01/04/20 23 01/08/2023 ALLER GENS (15) FOOD X095-IkW shrimp 0.13 kU/L class 0/I abnormal Not Available [facility] (Lab) [address] [place], [address], 01/08/2023 19:08:35 01/04/20 23 01/08/2023 ALLER GENS (15) FOOD X790-LiM walnut 0.15 kU/L class 0/I abnormal Not Available [facility] (Lab) [address] [place], [address], 01/08/2023 19:08:35 01/04/20 23 01/08/2023 ALLER GENS (15) FOOD S571-QlM codfish <0.10 kU/L class 0 Not Available [facility] (Lab) [address] [place], [address], 01/08/2023 19:08:35 01/04/20 23 01/08/2023 ALLER GENS (15) FOOD E388-EqC wheat 0.47 kU/L class I abnormal Not Available [facility] (Lab) [address] [place], [address], 01/08/2023 19:08:35 01/04/20 23 01/08/2023 ALLER GENS (15) FOOD sesame seed 0.78 kU/L class II abnormal Not Available [facility] (Lab) [address] [place], [address], 01/08/2023 19:08:35 01/04/20 23 01/08/2023 ALLER GENS (15) FOOD hazelnut (filbert) 0.42 kU/L class I abnormal Not Available [facility] (Lab) [address] [place], [address], 01/08/2023 19:08:35 01/04/20 23 01/08/2023 ALLER GENS (15) FOOD almond 0.19 kU/L class 0/I abnormal Not Available [facility] (Lab) [address] [place], [address], 01/08/2023 19:08:35 01/04/20 23 01/08/2023 ALLER GENS (15) FOOD tuna <0.10 kU/L class 0 Not Available [facility] (Lab) [address] [place], [address], 01/08/2023 19:08:35 01/04/20 23 01/08/2023 ALLER GENS (15) FOOD salmon <0.10 kU/L class 0 Not Available [facility] (Lab) [address] [place], [address], 01/08/2023 19:08:35 01/04/20 23 01/08/2023 ALLER GENS (15) FOOD scallop <0.10 kU/L class 0 Perfo rmed at: [facility] [place] [address] [facility] , [place] [address] Lab Direc tor: Carol barron MD, Phone : [phone] Not Available [facility] (Lab) [address] [place], [address], 01/08/2023 19:08:35 01/04/20 23 01/08/2023 ALLER GENS (15) FOOD cashew nut <0.10 kU/L class 0 abnormal Not Available [facility] (Lab) [address] [place], [address], 01/08/2023 19:08:35 01/06/20 23 01/09/2023 OVA + MARLENE ITE EXAM ova + parasite exam Final report These resul ts were obtai latrice using wet prepa ratio n(s) and trich isatu stain ed smear . This test does not inclu de testi ng for Crypt ospor idium parvu m, Cyclo spora , or Micro spori elpidio. Not Available [facility] (Lab) [address] [place], [address], 01/09/2023 14:13:25 01/06/20 23 01/09/2023 OVA + MARLENE ITE EXAM result 1 Commen t No ova, cysts , or marlene ites seen. . One negat austin speci men does not rule out the possi bilit y of a marlene itic infec tion. Perfo rmed at: [facility] [address] [id number] [facility] Lab Direc tor: Chung hull PhD, Phone : [phone] Not Available [facility] (Lab) [address] [place], [address], 01/09/2023 14:13:25 01/06/20 23 01/09/2023 FECAL FAT, QUALI TATIV E fats, neutral Normal Unique l (<60 Dropl ets/H PF) Not Available [facility] (Lab) [address] [place], [address], 01/09/2023 19:08:47 01/06/20 23 01/09/2023 FECAL FAT, QUALI TATIV E fats, total Increa sed Unique l (<100 Dropl ets/H PF) Perfo rmed at: [facility] n [address] [facility], [place], [place] [id number] Lab Direc tor: Chung hull PhD, Phone : [phone] Not Available [facility] (Lab) [address] [place], [address], 01/09/2023 19:08:47 01/06/20 23 01/10/2023 PANCR EATIC ELAST ASE, FECAL pancreatic elastase, fecal 496 ug_el ast./ g >200 Sever e Pancr eatic Insuf ficie ncy: <100 Moder ate Pancr eatic Insuf ficie ncy: 100 - 200 Unique l: >200 Perfo rmed at: [facility] [place] [address] [facility] , [place] [address] Lab Direc tor: Carol barron MD, Phone : [phone] Not Available [facility] (Lab) [address] [place], [address], 01/10/2023 15:10:23 05/19/20 23 05/20/2023 FECAL LEUKO CYTES (WBC) fecal WBCs NONE Not Available [facility] (Lab) [address] [place], [address], 05/20/2023 13:46:07 05/19/20 23 05/21/2023 SHIGA (E.CO LI) TOXIN STOOL toxin 1 NEGATI VE Not Available [facility] (Lab) [address] [place], [address], 05/21/2023 09:38:18 05/19/20 23 05/21/2023 SHIGA (E.CO LI) TOXIN STOOL toxin 2 NEGATI VE THIS TEST IS FOR THE RAPID DETEC TION OF SHIGA TOXIN -PROD UCING STRAI NS OF ENTER OHEMO RRAGH IC E. COLI. Not Available [facility] (Lab) [address] [place], [address], 05/21/2023 09:38:18 05/19/20 23 05/21/2023 SHIGA (E.CO LI) TOXIN STOOL QC pos POSITI VE Not Available [facility] (Lab) [address] [place], [address], 05/21/2023 09:38:18 05/19/20 23 05/21/2023 SHIGA (E.CO LI) TOXIN STOOL QC neg NEGATI VE Not Available [facility] (Lab) [address] [place], [address], 05/21/2023 09:38:18 05/19/20 23 05/30/2023 OVA + MARLENE ITE EXAM ova + parasite exam Final report These resul ts were obtai latrice using wet prepa ratio n(s) and trich isatu stain ed smear . This test does not inclu de testi ng for Crypt ospor idium parvu m, Cyclo spora , or Micro spori elpdiio. Not Available [facility] (Lab) [address] [place], [address], 05/30/2023 20:09:03 05/19/20 23 05/30/2023 OVA + MARLENE ITE EXAM result 1 Commen t No ova, cysts , or marlene ites seen. . One negat austin speci men does not rule out the possi bilit y of a marlene itic infec tion. Perfo rmed at: - [address], [place] [id number] [facility] Lab Direc tor: Chung hull PhD, Phone : [phone] Not Available [facility] (Lab) [address] [place], [address], 05/30/2023 20:09:03 07/15/20 23 07/15/2023 CBC/C OMPLE TE BLD COUNT W/DIF F white blood cells 6.0 x10'3 /uL 4.2-10 .8 Not Available [facility] (Lab) [address] [place], [address], 07/15/2023 19:07:02 07/15/20 23 07/15/2023 CBC/C OMPLE TE BLD COUNT W/DIF F red blood cells 4.77 x10'6 /uL 3.80-5 .20 Not Available [facility] (Lab) [address] [place], [address], 07/15/2023 19:07:02 07/15/20 23 07/15/2023 CBC/C OMPLE TE BLD COUNT W/DIF F hemoglobin 15.2 g/dL 12.0-1 5.6 Not Available [facility] (Lab) [address] [place], [address], 07/15/2023 19:07:02 07/15/20 23 07/15/2023 CBC/C OMPLE TE BLD COUNT W/DIF F hematocrit 44.9 % 35.7-4 5.7 Not Available [facility] (Lab) [address] [place], [address], 07/15/2023 19:07:02 07/15/20 23 07/15/2023 CBC/C OMPLE TE BLD COUNT W/DIF F mean red cell volume 94.1 fL 82.0-9 9.0 Not Available [facility] (Lab) [address] [place], [address], 07/15/2023 19:07:02 07/15/20 23 07/15/2023 CBC/C OMPLE TE BLD COUNT W/DIF F mean red cell hemoglobin 31.9 pg 27.0-3 3.0 Not Available [facility] (Lab) [address] [place], [address], 07/15/2023 19:07:02 07/15/20 23 07/15/2023 CBC/C OMPLE TE BLD COUNT W/DIF F mean RBC HGB concentratio n 33.9 g/dL 31.0-3 6.0 Not Available [facility] (Lab) [address] [place], [address], 07/15/2023 19:07:02 07/15/20 23 07/15/2023 CBC/C OMPLE TE BLD COUNT W/DIF F red cell distribution width 12.2 % 11.8-1 5.5 Not Available [facility] (Lab) [address] [place], [address], 07/15/2023 19:07:02 07/15/20 23 07/15/2023 CBC/C OMPLE TE BLD COUNT W/DIF F platelets 241 x10'3 /uL 150-40 0 Not Available [facility] (Lab) [address] [place], [address], 07/15/2023 19:07:02 07/15/20 23 07/15/2023 CBC/C OMPLE TE BLD COUNT W/DIF F mean platelet volume 9.7 fL 9.0-12 .4 Not Available [facility] (Lab) [address] [place], [address], 07/15/2023 19:07:02 07/15/2007/15/2023 CBC/C OMPLE TE BLD COUNT W/DIF F neutrophils 54.5 % 39.0-7 2.0 Not Available [facility] (Lab) [address] [place], [address], 07/15/2023 19:07:02 07/15/2007/15/2023 CBC/C OMPLE TE BLD COUNT W/DIF F lymphocytes 32.4 % 16.0-4 7.0 Not Available [facility] (Lab) [address] [place], [address], 07/15/2023 19:07:02 07/15/20 23 07/15/2023 CBC/C OMPLE TE BLD COUNT W/DIF F monocytes 10.0 % 5.0-12 .0 Not Available [facility] (Lab) [address] [place], [address], 07/15/2023 19:07:02 07/15/20 23 07/15/2023 CBC/C OMPLE TE BLD COUNT W/DIF F eosinophils 2.3 % 1.0-7. 0 Not Available [facility] (Lab) [address] [place], [address], 07/15/2023 19:07:02 07/15/20 23 07/15/2023 CBC/C OMPLE TE BLD COUNT W/DIF F basophils 0.5 % 0.0-2. 0 Not Available [facility] (Lab) [address] [place], [address], 07/15/2023 19:07:02 07/15/20 23 07/15/2023 CBC/C OMPLE TE BLD COUNT W/DIF F immature granulocytes 0.3 % 0.00-0 .50 Not Available [facility] (Lab) [address] [place], [address], 07/15/2023 19:07:02 07/15/20 23 07/15/2023 CBC/C OMPLE TE BLD COUNT W/DIF F neutrophils, absolute count 3.26 x10'3 /uL 1.5-8. 0 Not Available [facility] (Lab) [address] [place], [address], 07/15/2023 19:07:02 07/15/20 23 07/15/2023 CBC/C OMPLE TE BLD COUNT W/DIF F lymphocytes, absolute count 1.94 x10'3 /uL 1.07-3 .43 Not Available [facility] (Lab) [address] [place], [address], 07/15/2023 19:07:02 07/15/20 23 07/15/2023 CBC/C OMPLE TE BLD COUNT W/DIF F monocytes, absolute count 0.60 x10'3 /uL 0.29-0 .99 Not Available [facility] (Lab) [address] [place], [address], 07/15/2023 19:07:02 07/15/20 23 07/15/2023 CBC/C OMPLE TE BLD COUNT W/DIF F eosinophils, absolute count 0.14 x10'3 /uL 0.02-0 .53 Not Available [facility] (Lab) [address] [place], [address], 07/15/2023 19:07:02 07/15/20 23 07/15/2023 CBC/C OMPLE TE BLD COUNT W/DIF F basophils, absolute count 0.03 x10'3 /uL 0.01-0 .08 Not Available [facility] (Lab) [address] [place], [address], 07/15/2023 19:07:02 07/15/20 23 07/15/2023 CBC/C OMPLE TE BLD COUNT W/DIF F immature granulocytes ,absolute 0.02 x10'3 /uL 0.00-0 .05 Not Available [facility] (Lab) [address] [place], [address], 07/15/2023 19:07:02 07/15/20 23 07/15/2023 CBC/C OMPLE TE BLD COUNT W/DIF F nucleated red blood cells 0.0 % -0 Not Available [facility] (Lab) [address] [place], [address], 07/15/2023 19:07:02 07/15/20 23 07/15/2023 CBC/C OMPLE TE BLD COUNT W/DIF F NRBC# 0.00 x10'3 /uL Not Available [facility] (Lab) [address] [place], [address], 07/15/2023 19:07:02 07/15/20 23 07/15/2023 COMPR EHENS AUSTIN METAB OLIC PANEL sodium 139 mmol/ L 137-14 5 Not Available [facility] (Lab) [address] [place], [address], 07/15/2023 19:25:38 07/15/20 23 07/15/2023 COMPR EHENS AUSTIN METAB OLIC PANEL potassium 3.7 mmol/ L 3.5-5. 1 Not Available [facility] (Lab) [address] [place], [address], 07/15/2023 19:25:38 07/15/20 23 07/15/2023 COMPR EHENS AUSTIN METAB OLIC PANEL chloride 99 mmol/ L 98-107 Not Available [facility] (Lab) [address] [place], [address], 07/15/2023 19:25:38 07/15/20 23 07/15/2023 COMPR EHENS [place]UST[place] METAB OLIC PANEL carbon dioxide 29 mmol/ L 22-30 Not Available [facility] (Lab) [address] [place], [address], 07/15/2023 19:25:38 07/15/20 23 07/15/2023 COMPR EHENS AUSTIN METAB OLIC PANEL anion gap 14.7 mmol/ L 14-22 Not Available [facility] (Lab) [address] [place], [address], 07/15/2023 19:25:38 07/15/20 23 07/15/2023 COMPR EHENS [place]UST[place] METAB OLIC PANEL glucose 102 mg/dL 70-99 high Not Available [facility] (Lab) [address] [place], [address], 07/15/2023 19:25:38 07/15/20 23 07/15/2023 COMPR EHENS [place]UST[place] METAB OLIC PANEL BUN 12 mg/dL 8-19 Not Available [facility] (Lab) [address] [place], [address], 07/15/2023 19:25:38 07/15/20 23 07/15/2023 COMPR EHENS AUST[place] METAB OLIC PANEL creatinine 0.94 mg/dL 0.66-1 .25 Not Available [facility] (Lab) [address] [place], [address], 07/15/2023 19:25:38 07/15/20 23 07/15/2023 COMPR EHENS [place] METAB OLIC PANEL GFR 59 Refer ence Range : [place] ge GFR Healt hy Adult : >60 mL/mi n/1.7 3 m2 Chron ic Kidne y Disea se: 15-60 mL/mi n/1.7 3 m2 Kidne y Failu re: <15/m L/min /1.73 m2 www.n iddk. nih.g ov The MDRD study equat ion has not been valid ated in child jesus <18 years of age; pregn ant women ; the elder ly >85 years of age; or in some racia l or ethni c subgr oups, such as Histx nics. Outsi de the valid ated kameron eters , estim ated GFR is less accur ate, requi ring clini ace judgm ent on a case- by-ca se basis . Clini ace inter preta tion for other races and ages must be made by the clini kelle. The MDRD study equat ion has not been valid ated for the evalu ation of serum creat inine relat ed to nutri jackie l statu s or medic ation usage . For perso ns <18 years of age, a pedia tric GFR calcu lator is avail able on the [facility] websi te: https ://katja w.kid abram.o rg/pr ofess ional s/kdo qi/gf r_cal culat or Not Available [facility] (Lab) [address] [place], [address], 07/15/2023 19:25:38 07/15/20 23 07/15/2023 COMPR EHENS AUSTIN METAB OLIC PANEL alkaline phosphatase 90 U/L 38-126 Not Available [facility] (Lab) [address] [place], [address], 07/15/2023 19:25:38 07/15/20 23 07/15/2023 COMPR EHENS AUST[place] METAB OLIC PANEL alanine aminotransfe rase 76 U/L 0-35 high Not Available [facility] (Lab) [address] [place], [address], 07/15/2023 19:25:38 07/15/20 23 07/15/2023 COMPR EHENS [place] METAB OLIC PANEL aspartate aminotransfe rase 95 U/L 15-37 high Not Available [facility] (Lab) [address] [place], [address], 07/15/2023 19:25:38 07/15/20 23 07/15/2023 COMPR EHENS AUSTIN METAB OLIC PANEL bilirubin, total 0.80 mg/dL 0.20-1 .30 Not Available [facility] (Lab) [address] [place], [address], 07/15/2023 19:25:38 07/15/20 23 07/15/2023 COMPR EHENS AUSTIN METAB OLIC PANEL calcium 9.9 mg/dL 8.4-10 .2 Not Available [facility] (Lab) [address] [place], [address], 07/15/2023 19:25:38 07/15/20 23 07/15/2023 COMPR EHENS AUSTIN METAB OLIC PANEL total protein 7.9 g/dL 6.3-8. 2 Not Available [facility] (Lab) [address] [place], [address], 07/15/2023 19:25:38 07/15/20 23 07/15/2023 COMPR EHENS AUSTIN METAB OLIC PANEL albumin 4.9 g/dL 3.0-4. 4 high Not Available [facility] (Lab) [address] [place], [address], 07/15/2023 19:25:38 07/15/20 23 07/15/2023 COMPR EHENS AUSTIN METAB OLIC PANEL globulin 3.0 g/dL 2.6-4. 2 Not Available [facility] (Lab) [address] [place], [address], 07/15/2023 19:25:38 07/15/20 23 07/15/2023 COMPR EHENS AUSTIN METAB OLIC PANEL A/G ratio 1.6 ratio 1.0-2. 0 Not Available [facility] (Lab) [address] [place], [address], 07/15/2023 19:25:38 07/15/20 23 07/15/2023 LIPID PANEL cholesterol 157 mg/dL 140-19 9 NIH REUBEN NSUS RECOM MENDA TION FOR OFELIA STERO L: ADULT CHILD LOW RISK: <200 <170 BORDE RLINE : <200- 239 ----- HIGH RISK: >240 >200 Not Available [facility] (Lab) [address] [place], [address], 07/15/2023 19:25:46 07/15/2007/15/2023 LIPID PANEL triglyceride s 147 mg/dL 0-150 NIH REUBEN NSUS REPOR T RECOM MENDA TION FOR TRIGL YCERI BERNIE: ADULT CHILD LOW RISK: <150 ----- BODER LINE: 150-1 99 ----- HIGH RISK: >200 ----- Not Available [facility] (Lab) [address] [place], [address], 07/15/2023 19:25:46 07/15/2007/15/2023 LIPID PANEL HDL cholesterol 97 mg/dL 40- Not Available [facility] (Lab) [address] [place], [address], 07/15/2023 19:25:46 07/15/20 23 07/15/2023 LIPID PANEL LDL cholesterol, calculated 31 mg/dL 0-130 NIH REUBEN NSUS REPOR T RECOM MENDA TIONS FOR LDL: ADULT CHILD LOW RISK <130 <110 (OPTI MAL LDL) <100 ----- BORDE RLINE : 130-1 59 ----- HIGH RISK: >160 >130 A TRIGL YCERI DE RESUL T >400 INVAL IDATE S THE CALCU LATIO N FOR LDL FRACT IONAT ION - THE LDL RESUL T WILL NOT BE REPOR BRITTNI. Not Available [facility] (Lab) [address] [place], [address], 07/15/2023 19:25:46 07/15/2007/15/2023 MICRO ALBUM IN RANDO M URINE microalbumin , urine 11.1 mg/L 0.0-16 .6 Not Available [facility] (Lab) [address] [place], [address], 07/15/2023 19:26:17 07/15/2007/15/2023 T4 FREE free T4 1.28 NG/dL 0.78-2 .19 Not Available [facility] (Lab) [address] [place], [address], 07/15/2023 19:39:30 07/15/2007/15/2023 VITAM IN D 25-HY DROXY vd25oh 53.9 NG/mL 30-100 Vitam in D Statu s: Defic ient: <20 ng/mL Insuf ficie nt: 20-29 ng/mL Suffi cient : 30-10 0 ng/mL Not Available [facility] (Lab) [address] [place], [address], 07/15/2023 19:39:40 07/15/2007/15/2023 TSH thyroid-stim ulating hormone 1.680 uIU/m L 0.465- 4.680 Not Available [facility] (Lab) [address] [place], [address], 07/15/2023 19:53:57 07/15/2007/15/2023 VITAM IN B12 (CARLENE HESHAM ) vb12 491 pg/mL 239-93 1 Not Available [facility] (Lab) [address] [place], [address], 07/15/2023 20:38:27 07/15/20 23 07/15/2023 FOLAT E, SERUM /PLAS MA folate 15.1 NG/mL 2.76-2 0.0 Not Available [facility] (Lab) [address] [place], [address], 07/15/2023 20:38:32 07/15/20 23 07/15/2023 HEMOG LOBIN A1C HA1C 5.2 % 4.0-6. 0 Diabe jeni Scree perez Crite patrica: <5.7% Consi stent with absen ce of diabe jeni 5.7-6 .4% Consi stent with incre ased risk for diabe jeni (pred iabet es) >OR=6 .5% Consi stent with diabe jeni REFER ENCE: Diabe jeni Care 2016, 39(Tovar ppl.1 ):s13 -s22 Not Available [facility] (Lab) [address] [place], [address], 07/15/2023 21:54:48 07/15/2007/15/2023 CULTU RE URINE urc ===== ===== ===== ===== ===== ===== ===== ===== ===== ===== ===== ===== ===== ===== ===== ===== ===== ===== ===== ===== ===== ===== ===== ===== CULTU RE NO.: [id number] Exam Statu s: Final Exam Type: CULTU RE URINE ===== ===== ===== ===== ===== ===== ===== ===== ===== ===== ===== ===== ===== ===== ===== ===== ===== ===== ===== ===== ===== ===== ===== ===== Cultu re Repor t: Organ ism #01 Esche marielle a coli (escc ol) Antib iotic s escco l Achie vable Achie vable (01) Dosag e Serum Level Urine Level mcg/m l mcg/m l Kiesha ness <=2 S 021A Ampic illin <=2 S 021A Ampic illin /Sulb actam <=2 S 021A Cefaz courtney <=4 S 021A Cefep vilma <=1 S 021A Cefox itin <=4 S 021A Ceftr iaxon e <=1 S 021A Cipro floxa ness >=4 R 021A ESBL NEG - 021A Genta micin <=1 S 021A Levof loxac in 4 I 021A Merop enem <=0.2 5 S 021A Piper acill in./T azaba <=4 S 021A Tobra mycin <=1 S 021A Trmet hopri m.Sul fa <=20 S 021A rt - Test Card Code AST-G N 021A o2 - Final Organ ism ESCHE R 021A af - Antib iotic Fami TRIME T 021A af - Antib iotic Famil y Na ap - Pheno type Name WILD 021A ap - Pheno type Name Nitro furan toin <=16 S 021A Not Available [facility] (Lab) [address] [place], [address], 07/17/2023 09:05:56 11/21/19 23 11/21/2022 XR, foot, 3 or more view No observ ation record ed. [id number] [facility] [place] [address], [place], [address], 12/25/2022 05:06:44 09/04/20 23 XR, chest , 2 view [facility] [address] [place] [address] Patien t Name: MAYA HOLLIS Access ion #: [id number] Sex: F : 1954 1 Dictat ed By: Tam Loza Attend ing Physic kenneth: FRIDA WALLER Orderi Physic kenneth: FRIDA WALLER Exam Date: 2022 13:25 PM Exam Name: XR CHEST 2V Admitt ing Diagno sis(es ): CHEST RADIOG RAPH Indica tion: pain Techni que: Fronta l and latera l view of the chest was obtain ed Compar eliseo: none FINDIN GS: Lines and Tubes: None Lungs: Clear Pleura : No effusi on. No pneumo thorax . Cardio medias tinal contou rs: Unrema rkable Bones: Unrema rkable IMPRES MEME: 1. No eviden ce of acute diseas e. Electr onical ly Signed by: Tam Loza at 2022 14:07: 24 PM Page 1 [email or web address] [facility] (Imaging) [address] [place], [address], 09/16/2023 15:54:15 09/04/20 23 09/04/2023 XR, chest No observ ation record ed. [email or web address] [facility] [address] [place], [address], 12/03/2023 17:26:15 09/04/20 23 ribs bilat eral, 3 vws [facility] [address] [place] [address] Patien t Name: HEBER HOLLISWN Access ion #: [id number] Sex: F : 1954 1 Dictat ed By: Sofiya Alva Attend ing Physic kenneth: FRIDA WALLER ng Physic kenneth: FRIDA WALLER Exam Date: 2022 13:25 PM Exam Name: XR RIBS BILAT 3V Admitt ing Diagno sis(es ): ACCESS ION #: [id number] EXAMIN ATION: XR RIBS BILAT 3V INDICA TION: Fall COMPAR ELISEO: None TECHNI QUE: Fronta l view of the chest and 3 views of the bilate ral ribs histor y FINDIN GS: No focal consol idatio n, pleura l effusi on or signif icant pneumo thorax . Normal cardio medias tinal silhou ette. No displa travis bilate ral rib fractu re. IMPRES MEME: 1. No acute cardio pulmon celia diseas e. 2. No displa travis bilate ral rib fractu re. Electr onical ly Signed by: Sofiya Alva at 2022 14:09: 59 PM Page [email or web address] (Imaging) [address] [place], [address], 09/16/2023 15:54:15 09/04/20 23 09/04/2023 XR, ribs, bilat eral, 3 view No observ ation record ed. [email or web address] [facility] [address] [place], [address], 09/16/2023 15:54:16 12/02/19 24 XR, hand, 3 or more view [facility] [address] [place] [address] Patien t Name: XIOMARA MAYA Access ion #: [id number] Sex: F : 1954 6 Dictat ed By: Sofiya Alva Attend ing Physic kenneth: BAHRAI NWFRIDA HERNANDEZ Physic kenneth: CANDIS PELAYO HERMANSarathSAMM Kavon Exam Date: 2023 15:33 PM Exam Name: XR HAND LT 3V Admitt ing Diagno sis(es ): CLINIC AL INDICA TION: pain TECHNI QUE: 6 radiog raphic views of the left hand and left elbow were obtain ed. Compar eliseo: None FINDIN GS: There is no eviden ce of acute fractu re or disloc ation. The visual ized joint space is well mainta ined. The alignm ent is anatom ical. Soft tissue s are unrema rkable . IMPRES MEME: No acute fractu re or disloc ation. Electr onical ly Signed by: Sofiya Alva at 2023 16:03: 33 PM Page 1 [facility] ([facility]) [address] [place], [address], 12/03/2023 17:26:15 12/02/19 24 elbow 3 vws, left [facility] [address] [place] [address] Patien t Name: MAYA HOLLIS Access ion #: [id number] Sex: F : 1954 6 Dictat ed By: Sofiya Alva Attend ing Physic kenneth: LOWELLFRIDA BURGER Physic kenneth: CANDIS GITA HERMANSarathSAMM Kavon Exam Date: 2023 15:33 PM Exam Name: XR ELBOW LT 3V Admitt ing Diagno sis(es ): CLINIC AL INDICA TION: pain TECHNI QUE: 6 radiog raphic views of the left hand and left elbow were obtain ed. Compar eliseo: None FINDIN GS: There is no eviden ce of acute fractu re or disloc ation. The visual ized joint space is well mainta ined. The alignm ent is anatom ical. Soft tissue s are unrema rkable . IMPRES MEME: No acute fractu re or disloc ation. Electr onical ly Signed by: Sofiya Alva at 2023 16:03: 33 PM Page 1 [email or web address] [facility] (Imaging) [address] [place], [address], 12/03/2023 17:26:16 12/02/19 24 12/02/2023 imagi ng/di agnos tic resul t No observ ation record ed. [facility] [address] [place], [address], 12/02/2023 17:16:45 12/02/19 24 12/02/2023 XR, elbow , 3 or more view No observ ation record ed. [facility] [address] [place], [address], 12/02/2023 17:21:53 08/30/20 24 08/30/2024 imagi ng/di agnos tic resul t No observ ation record ed. [facility] [address], [place], [address], 08/30/2024 18:53:16 11/10/19 25 11/10/2024 imagi ng/di agnos tic resul t No observ ation record ed. [address] [address], [place], [address], 11/10/2024 17:31:39 11/10/19 25 11/10/2024 imagi ng/di agnos tic resul t No observ ation record ed. [address], [address], 11/10/2024 17:42:23 11/16/19 25 11/16/2024 XR, ribs, unila teral , 3 or more view No observ ation record ed. [email or web address], [address], 11/18/2024 10:05:09 Result Notes None recorded. Problems Name Problem SNOMED Code Status Onset Date Resolution Date Notes Provider Name and Address Organization Details Recorded Time Loose stool 594074434 Active 2022 Not Available [facility] 4 01:56:21 Type 2 diabetes mellitus without complicati on 574095593 Active 2022 Not Available [facility] 4 01:56:21 Hyperlipid emia 18315617 Active 2022 Not Available [facility] 4 01:56:21 Chronic depression 689452353 Active 2022 Not Available [facility] 4 01:56:21 Gastroesop hageal reflux disease without esophagiti s 883799182 Active 2022 Not Available [facility] 4 01:56:21 Osteoarthr itis of knee 283495014 Active 2022 Not Available [facility] 4 01:56:21 Skin lesion 28808519 Active 2022 Not Available [facility] 4 01:56:21 Insomnia 658437609 Active 2022 Not Available [facility] 4 01:56:21 Diarrhea 69311250 Active 2022 Not Available [facility] 4 01:56:21 Pain of toe of left foot 9941552358692 08 Active 2022 Not Available [facility] 4 01:56:21 Liver enzymes level above reference range 606738087 Active 2022 Not Available [facility] 4 01:56:21 Pain of left hand 8752108169672 03 Active 2023 SURJIT Mendoza, NEYDA Cifuentes [facility] 4 15:47:11 Pain of left elbow joint 8691729527929 9104 Active 2023 SURJIT Mendoza, NEYDA Cifuentes [facility] 4 15:47:25 Injury of hand 483007626 Active 2023 SURJIT Mendoza, NEYDA Cifuentes [facility] 4 15:13:22 Pain of left shoulder joint 3619856547670 9109 Active 2023 Amanda allen MD [address] [facility], [address] [address], [place], [address] , [facility] 4 14:51:43 Rib pain 658669148 Active 2023 Sherrill Santos MA [facility], [place] [employer] [facility] 4 14:29:47 Renewal of prescripti on Active 2021 Not Available [facility] 4 01:56:21 Menopausal syndrome 545247169 Active Not Available [facility] 4 01:56:21 Hyperchole sterolemia 62540182 Active Not Available [facility] 4 01:56:21 Capsulitis of metatarsop halangeal joint of right foot 6528906727991 9106 Active 2021 Not Available [facility] 4 01:56:21 Backache 516307918 Active Not Available [facility] 4 01:56:21 Blood chemistry outside reference range 752743360 Active Not Available [facility] 4 01:56:21 Mammograph y abnormal 035485648 Active Not Available [facility] 4 01:56:21 Closed fracture proximal phalanx, toe 370974534 Active 2022 Not Available [facility] 4 01:56:21 Ankle edema 84514717 Active Not Available [facility] 4 01:56:21 Shoulder joint pain 585000916 Active Not Available [facility] 4 01:56:21 Numbness of upper limb 693953653 Active Not Available [facility] 4 01:56:21 Pain in right foot 8788998467134 07 Active 2021 Not Available [facility] 4 01:56:21 Restless legs 16403135 Active 2021 Not Available [facility] 4 01:56:21 Vitamin D deficiency 87053284 Active 2021 Not Available [facility] 4 01:56:21 Hypertensi ve disorder 01658076 Active Not Available [facility] 4 01:56:21 Familial hyperchole sterolemia 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 2021 Not Available [facility] 4 01:56:21 Ingrowing toenail 658908342 Active 2021 Not Available [facility] 4 01:56:21 Chronic sinusitis 08988886 Active Not Available [facility] 4 01:56:21 Bunion 002186243 Active 2021 Not Available [facility] 4 01:56:21 Olecranon bursitis 760708687 Active Not Available [facility] 4 01:56:21 Secondary osteoarthr itis 024847719 Active Not Available [facility] 4 01:56:21 Foot pain 92276240 Active Not Available [facility] 4 01:56:21 Foot pain 71828629 Active 2021 Not Available [facility] 4 01:56:21 Upper respirator y infection 46857161 Active 2022 Not Available [facility] 4 01:56:21 Disorder of bursa of shoulder region 44153420 Active Not Available [facility] 4 01:56:21 Essential hypertensi on 97278652 Active 2021 Not Available [facility] 4 01:56:21 Increased liver function 59317167 Active Not Available [facility] 4 01:56:21 Prediabete s 735685610 Active 2021 Not Available [facility] 4 01:56:21 Brachial neuritis 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 Please review these documents and add these problems to the patient's chart manually as needed. Problem Notes None recorded. Procedures Surgical History Date Name Laterality Status Provider Name and Address Organization Details Recorded Time 08/23/20 24 Medicare Wellness CPT Code, Initial completed Cabrera Angel LPN [place] [employer] 08/04/2024 07:58:43 08/05/20 22 revision of repair of rotator cuff completed Not Available [facility] 12/25/2022 04:41:40 03/19/20 21 Knee Surgery completed Not Available [facility] 023 04:41:40 02/06/20 19 Kidney/Bladder Surgery completed Not Available [facility] 12/25/2022 04:41:40 11/13/[address] xartc fx/epi sep completed Not Available [facility] 12/25/2022 04:41:40 05/27/20 16 Rotator cuff surgery completed Not Available [facility] 12/25/2022 04:41:40 05/16/20 16 Rotator cuff surgery completed Not Available [facility] 12/25/2022 04:41:40 05/26/20 14 Date of Last Colonoscopy completed Not Available [facility] 12/25/2022 04:41:34 Orthopedic Surgery completed Not Available [facility] 12/25/2022 04:41:40 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 Not Available [facility] 12/25/2022 04:41:40 procedure on wrist completed Not Available [facility] 12/25/2022 04:41:40 procedure on urinary bladder completed Not Available [facility] 12/25/2022 04:41:40 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 Not Available [facility] 12/25/2022 04:41:40 repair of shoulder completed Nickie Marino RN [facility] [employer] 12/30/2022 14:51:03 Imaging Results Imaging Date Name Status LastModified by Organiz ation Details LastModified Time 11/21/2022 XR, foot, 3 or more view completed [id number] [facility] [place] [address], [place], [address], 12/25/2022 05:06:44 09/04/2023 XR, chest, 2 view completed [email or web address] [facility] (Imaging) [address] [place], [address], 09/16/2023 15:54:15 09/04/2023 XR, chest completed [email or web address] [facility] [address] [place], [address], 12/03/2023 17:26:15 09/04/2023 ribs bilateral, 3 vws completed [email or web address] [facility] (Imaging) [address] [place], [address], 09/16/2023 15:54:15 09/04/2023 XR, ribs, bilateral, 3 view completed [email or web address] [facility] [address] [place], [address], 09/16/2023 15:54:16 12/02/2023 XR, hand, 3 or more view completed [email or web address] [facility] (Imaging) [address] [place], [address], 12/03/2023 17:26:15 12/02/2023 elbow 3 vws, left completed [email or web address] [facility] (Imaging) [address] [place], [address], 12/03/2023 17:26:16 12/02/2023 imaging/elpidio gnostic result active [facility] [address] [place], [address], 12/02/2023 17:16:45 12/02/2023 XR, elbow, 3 or more view active [facility] [address] [place], [address], 12/02/2023 17:21:53 08/30/2024 imaging/elpidio gnostic result active [facility] [address], [place], [address], 08/30/2024 18:53:16 11/10/2024 imaging/elpidio gnostic result active [address], [place], [address], 11/10/2024 17:31:39 11/10/2024 imaging/elpidio gnostic result active [address], [place], [address], 11/10/2024 17:42:23 11/16/2024 XR, ribs, unilateral, 3 or more view completed [address], [place], [address], 11/18/2024 10:05:09 Procedure Notes None recorded. Medical Equipment None Reported. Allergies Allergen ID Allergen Name Allergen Category Reaction Reaction Severity Criticality Documentation Date Start Date Code Code System Note Provider Name and Address Organization Details Recorded Time 8705 Substance with sulfonami de structure and antibacte rial mechanism of action (substanc e) medicatio n hives moderate Not available 12/25/2022 64834 8003 SNOMED Not Available [facility] 3 05:06:08 8706 codeine medicatio n itching severe Not available 12/25/2022 2670 RxNorm Not Available [facility] 3 05:06:08 8707 garlic preparati on food,medi cation Not available Not available Not available 12/25/2022 59966 7 RxNorm Not Available [facility] 3 05:06:08 Medications Name Sig Start Date Stop Date Status Note LastModified by Organization Details LastModified Time carisopro dol 350 mg tablet Take 1 tablet every day by oral route at bedtime. active Not Available Not Available No t Available amoxicill in 500 mg capsule 05/14 completed Not Available Not Available Not Available fluconazo le 100 mg tablet 01/11 completed Not Available Not Available Not Available metformin 500 mg tablet TAKE ONE TABLET BY MOUTH TWICE A DAY active Not Available Not Available No t Available prednison e 10 mg tablet Take by oral route. active Not Available Not Available No t Available nitrofura ntoin macrocrys adalgisa 50 mg capsule 04/10 completed Not Available Not Available Not Available doxycycli ne hyclate 100 mg capsule active Not Available Not Available Not Available clindamyc in HCl 300 mg capsule 07/01 completed Not Available Not Available Not Available ammonium lactate 12 % lotion Apply as needed by topical route for 15 days. active Not Available Not Available No t Available trazodone 50 mg tablet Take 1-2 Tablets (100 mg) by mouth 1 time daily as needed. No alcohol, driving, or sedating medicati ons. 2023 active Not Available Not Available Not Avai lable cetirizin e 10 mg tablet Take 1 Tablet (10 mg) by mouth 1 time daily as needed. 08/23 completed Not Available Not Available Not Available atorvasta tin 10 mg tablet TAKE 1 TABLET BY MOUTH DAILY. 10/14 completed Not Available Not Available Not Available oxybutyni n chloride ER 10 mg tablet,ex tended release 24 hr 08/23 completed Not Available Not Available Not Available azithromy ness 250 mg tablet TAKE 2 TABLETS (500 MG) BY ORAL ROUTE ONCE DAILY FOR 1 DAY THEN 1 TABLET (250 MG) BY ORAL ROUTE ONCE DAILY FOR 4 DAYS 11/15 completed Not Available Not Available Not Available cephalexi n 250 mg capsule Take 1 capsule 3 times a day by oral route for 7 days. active Not Available Not Available No t Available hydrocodo ne 5 mg-acetam inophen 325 mg tablet active Not Available Not Available Not Available Claritin 10 mg tablet Take 1 tablet every day by oral route as needed for 30 days. 11/12 completed Not Available Not Available Not Available ondansetr on HCl 4 mg tablet 05/14 completed Not Available Not Available Not Available prednison e 20 mg tablet 06/20 completed Not Available Not Available Not Available fluoroura cil 5 % topical cream active Not Available Not Available Not Available potassium chloride ER 10 mEq tablet,ex tended release active Not Available Not Available Not Available amlodipin e 5 mg tablet Take 1 Tablet (5 mg) by mouth daily. active Not Available Not Available No t Available ciproflox acin 500 mg tablet Take 1 tablet every 12 hours by oral route for 7 days. active Not Available Not Available No t Available tramadol 50 mg tablet Take 1 tablet every 6 hours by oral route as needed. active Not Available Not Available No t Available ketorolac 30 mg/mL (1 mL) injection solution Inject 1 mL every 6 hours by intramus cular route. active Not Available Not Available No t Available ketorolac 10 mg tablet 10/14 completed Not Available Not Available Not Available Kenalog 40 mg/mL suspensio n for injection Take 1 mL as needed by injectio n route. active Not Available Not Available No t Available pramipexo le 0.5 mg tablet active Not Available Not Available Not Available nystatin- triamcino lone 100,000 unit/gram -0.1 % topical ointment APPLY TO THE AFFECTED AREA(S) BY TOPICAL ROUTE 2 TIMES PER DAY 01/22 completed Not Available Not Available Not Available ciclopiro x 8 % topical solution active Not Available Not Available Not Available meloxicam 7.5 mg tablet TAKE ONE TABLET BY MOUTH TWICE DAILY NEEDED WITH FOOD active Not Available Not Available No t Available oxycodone -acetamin ophen 5 mg-325 mg tablet 11/04 completed Not Available Not Available Not Available amoxicill in 875 mg tablet active Not Available Not Available Not Available oxycodone -acetamin ophen 10 mg-325 mg tablet 05/05 completed Not Available Not Available Not Available dexametha sone 1 mg tablet Take 1 tablet every day by oral route as directed for 1 day. active take at 11 pm the night before getting 8 am cortisol level drawn Not Available Not Available Not Available benzonata te 100 mg capsule 11/12 completed Not Available Not Available Not Available hydrocodo ne 7.5 mg-acetam inophen 325 mg tablet 04/01 completed Not Available Not Available Not Available cephalexi n 500 mg capsule TK PRN 08/23 completed Not Available Not Available Not Available pantopraz ole 40 mg tablet,de layed release 05/05 completed Not Available Not Available Not Available triamcino lone acetonide 0.1 % topical ointment active Not Available Not Available Not Available ropinirol e 0.5 mg tablet Take 1 Tablet (0.5 mg) by mouth nightly as needed. active Not Available Not Available No t Available fluoromet holone 0.1 % eye drops,jarred pension 08/23 completed Not Available Not Available Not Available nystatin- triamcino lone 100,000 unit/g-0. 1 % topical cream 08/18 completed Not Available Not Available Not Available omeprazol e 20 mg capsule,d elayed release TAKE ONE CAPSULE BY MOUTH ONCE DAILY NEEDED 2024 active Not Available Not Available Not Avai lable etodolac 400 mg tablet Take 1 tablet twice a day by oral route for 30 days. active Not Available Not Available No t Available monteluka st 10 mg tablet Take 1 tablet every day by oral route. 07/01 completed Not Available Not Available Not Available hydralazi ne 50 mg tablet 01/11 completed Not Available Not Available Not Available mupirocin 2 % topical ointment 05/14 completed Not Available Not Available Not Available diclofena c sodium 50 mg tablet,de layed release Take 1 tablet twice a day by oral route for 30 days. 10/03 completed Not Available Not Available Not Available ergocalci ferol (vitamin D2) 1,250 mcg (50,000 unit) capsule Take 1 capsule every week by oral route for 60 days. 03/27 completed Not Available Not Available Not Available diazepam 10 mg tablet active Not Available Not Available Not Available levofloxa ness 500 mg tablet 01/11 completed Not Available Not Available Not Available levofloxa ness 750 mg tablet Take 1 tablet every day by oral route for 7 days. 2024 active Not Available Not Available Not Avai lable methylpre dnisolone 4 mg tablets in a dose pack Take 1 dose pk by oral route. 04/10 completed Not Available Not Available Not Available albuterol sulfate HFA 90 mcg/actua tion aerosol inhaler 03/19 completed Not Available Not Available Not Available ondansetr on 4 mg disintegr ating tablet 01/11 completed Not Available Not Available Not Available metformin ER 500 mg tablet,ex tended release 24 hr TAKE TWO TABLETS BY MOUTH EVERY MORNING active Not Available Not Available No t Available sertralin e 50 mg tablet Take 1 Tablet (50 mg) by mouth daily. Contact clinic if change in mood or behavior . 2023 active Not Available Not Available Not Avai lable amoxicill in 875 mg-potass ium clavulana te 125 mg tablet Take 1 tablet twice a day by oral route for 7 days. 08/23 completed Not Available Not Available Not Available amoxicill in 500 mg-potass ium clavulana te 125 mg tablet 03/27 completed Not Available Not Available Not Available oxycodone 5 mg tablet 05/14 completed Not Available Not Available Not Available Premarin 0.3 mg tablet Take 1 tablet(s ) every day by oral route. 10/14 completed Not Available Not Available Not Available Flovent HFA 220 mcg/actua tion aerosol inhaler active Not Available Not Available Not Available losartan 100 mg-hydroc hlorothia zide 12.5 mg tablet Take 1 Tablet by mouth daily. 2024 active Not Available Not Available Not Avai lable milk thistle 2 tab daily 2018 active Not Available Not Available Not Avai lable cranberry TK 1T PO QD 05/14 completed Not Available Not Available Not Available Fish Oil 08/23 completed Not Available Not Available Not Available clobetaso l-emollie nt 0.05 % topical foam active Not Available Not Available Not Available OneTouch Delica Lancets 33 gauge test sugars once daily 05/05 completed Not Available Not Available Not Available Suprep Bowel Prep Kit 17.5 gram-3.13 gram-1.6 gram oral solution active Not Available Not Available Not Available Xarelto 10 mg tablet 05/14 completed Not Available Not Available Not Available OneTouch Verio test strips Take 1 strip twice a day by miscell. route. 2022 active Not Available Not Available Not Avai lable Aurstat 96.53 %-3 %-0.4 %-0.066 % topical kit,cream and gel active Not Available Not Available Not Available Fluvirin 0392-0028 45 mcg (15 mcg x 3)/0.5 mL intramusc ular suspensio n ADM 0.5ML UTD active Not Available Not Available No t Available Trulicity 1.5 mg/0.5 mL subcutane ous pen injector Inject 1.5 mg every week by subcutan eous route as directed for 90 days. 08/23 completed Not Available Not Available Not Available Trulicity 0.75 mg/0.5 mL subcutane ous pen injector Inject 0.5 mL every week by subcutan eous route as directed for 28 days. 12/30 completed Not Available Not Available Not Available Flonase Allergy Relief 50 mcg/actua tion nasal spray,jarred pension 1 spray each nostril daily as needed 11/12 completed Not Available Not Available Not Available Repatha Syringe 140 mg/mL subcutane ous syringe INJECT 140 MG SUBCUTAN EOUSLY ONCE EVERY 2 WEEKS 08/23 completed Not Available Not Available Not Available Repatha SureClick 140 mg/mL subcutane ous pen injector inject 140 mg SQ once every 2 weeks x 90 days 2024 active Not Available Not Available Not Avai lable Eucrisa 2 % topical ointment use as needed 01/22 completed Not Available Not Available Not Available Ozempic 0.25 mg or 0.5 mg (2 mg/1.5 mL) subcutane ous pen injector Inject 0.5 mg every week by subcutan eous route in the morning for 90 days. 08/23 completed Not Available Not Available Not Available Afluria Qd 2019- (36 mos up)(PF)60 mcg (15 mcg x4)/0.5 mL IM syringe ADM 0.5ML IM UTD 09/25 completed Not Available Not Available Not Available Vitals Date Recorded Body mass index (BMI) Body height Oxygen saturation Oxygen saturation in Arterial blood by Pulse oximetry Heart rate Respiratory rate Body weight Systolic blood pressure Diastolic blood pressure Provider Name and Address Organization Details Last Updated DateTime 3 27.8 kg/m2 165.1 cm 97 % 97 % 84 /min 14 /min 91282.9 3 g 165 mm[Hg] 87.99 mm[Hg] Not Available [facility] 3 04:46:17 Date Recorded Body height Body mass index (BMI) Body weight Respiratory rate Body temperature Heart rate Systolic blood pressure Diastolic blood pressure Provider Name and Address Organization Details Last Updated DateTime 3 167.64 cm 27.5 kg/m2 18986.8 6 g 12 /min 97.8 [degF] 80 /min 153 mm[Hg] 98 mm[Hg] Nickie Marino RN [facility] [employer] [facility] 3 14:53:15 Date Recorded Body height Body mass index (BMI) Body weight Body temperature Heart rate Systolic blood pressure Diastolic blood pressure Provider Name and Address Organization Details Last Updated DateTime 3 167.64 cm 27.1 kg/m2 87382.5 2 g 97.2 [degF] 78 /min 126 mm[Hg] 80 mm[Hg] Kellen Cabreratanvi Kavon [facility] [employer] [facility] 3 17:48:34 Date Recorded Body height Body mass index (BMI) Body weight Body temperature Heart rate Systolic blood pressure Diastolic blood pressure Provider Name and Address Organization Details Last Updated DateTime 4 167.64 cm 24.7 kg/m2 96311.6 3 g 97.5 [degF] 78 /min 120 mm[Hg] 70 mm[Hg] Kellen Izquierdo Kavon [facility] [employer] [facility] 4 14:07:00 Date Recorded Body height Body mass index (BMI) Body weight Body temperature Heart rate Systolic blood pressure Diastolic blood pressure Provider Name and Address Organization Details Last Updated DateTime 5 167.64 cm 26.5 kg/m2 02031.1 5 g 97.5 [degF] 72 /min 134 mm[Hg] 70 mm[Hg] Kellen Cabreratanvi Kavon [facility] [employer] [facility] 5 11:23:13 Social History Question Answer Notes LastModified by Organizat ion Details LastModified Time Tobacco Smoking Status Never Smoker Not Available [facility] 12/25/2022 04:28:26 Do You Have An Advance Directive? No [id number] Information not available 12/25/2022 What Is Your Level Of Alcohol Consumption? Moderate MIGRATION.63107 96709 Information not available 12/25/2022 Are You Blind Or Do You Have Difficulty Seeing? Yes Glasses MIGRATION.40783 71553 Information not available 12/25/2022 What Is Your Level Of Caffeine Consumption? Occasional MIGRATION.14745 67894 Information not available 12/25/2022 How Much Tobacco Do You Chew? None MIGRATION.00775 43495 Information not available 12/25/2022 In The 14 Days Before Symptom Onset, Have You Had Close Contact With A Laboratory-confi rmed COVID-19 While That Case Was Ill? No MIGRATION.08825 04603 Information not available 12/25/2022 In The 14 Days Before Symptom Onset, Have You Had Close Contact With A Person Who Is Under Investigation For COVID-19 While That Person Was Ill? No MIGRATION.85526 42210 Information not available 12/25/2022 Are You Deaf Or Do You Have Serious Difficulty Hearing? No MIGRATION.66273 53670 Information not available 12/25/2022 What Type Of Diet Are You Following? REGULAR MIGRATION.73254 77221 Information not available 12/25/2022 Which Illicit Or Recreational Drugs Have You Used? 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 No MIGRATION.04762 82258 Information not available 12/25/2022 What Is The Fluoride Status Of Your Home? Unknown MIGRATION.47474 00801 Information not available 12/25/2022 Are There Any Guns Present In Your Home? Yes MIGRATION.43349 78156 Information not available 12/25/2022 Do You Use Insect Repellent Routinely? Yes MIGRATION.05208 16529 Information not available 12/25/2022 Where Do You Live? [facility] MIGRATION.37202 46937 Information not available 12/25/2022 Do You Have A Medical Power Of Aws Architect? No MIGRATION.05023 20978 Information not available 12/25/2022 What Was The Date Of Your Most Recent Tobacco Screening? 11/15/2024 Information not available 11/15/2024 Have You Ever Been Counseled For Unhealthy Alcohol Use? No MIGRATION.71825 00157 Information not available 12/25/2022 Do You Have Any Pets? No MIGRATION.55999 20926 Information not available 12/25/2022 What Is Your Relationship Status? MIGRATION.33386 96804 Information not available 12/25/2022 Do You Use Your Seat Belt Or Car Seat Routinely? Yes MIGRATION.85002 24229 Information not available 12/25/2022 Do You Have Smoke And Carbon Monoxide Detectors In Your Home? Yes MIGRATION.66774 27108 Information not available 12/25/2022 Are You Passively Exposed To Smoke? No MIGRATION.34931 90635 Information not available 12/25/2022 Are There Any Smokers In Your House? No MIGRATION.79429 77451 Information not available 12/25/2022 How Much Tobacco Do You Smoke? No MIGRATION.92947 26932 Information not available 12/25/2022 What Types Of Sporting Activities Do You Participate In? None MIGRATION.57748 89999 Information not available 12/25/2022 Do You Feel Stressed (tense, Restless, Nervous, Or Anxious, Or Unable To Sleep At Night)? [id number] MIGRATION.10141 12648 Information not available 12/25/2022 Do You Use Any Illicit Or Recreational Drugs? No MIGRATION.87020 39686 Information not available 12/25/2022 Do You Use Sunscreen Routinely? Yes MIGRATION.41837 53735 Information not available 12/25/2022 Has Tobacco Cessation Counseling Been Provided? No Not Needed-nev er Smoked MIGRATION.72556 39384 Information not available 12/25/2022 How Many Years Have You Smoked Tobacco? 0 MIGRATION.93595 14464 Information not available 12/25/2022 Have You Recently Traveled Abroad? No MIGRATION.24064 69924 Information not available 12/25/2022 Do You Have Any Dietary Restrictions? No MIGRATION.58354 48396 Information not available 12/25/2022 Do You Or Have You Ever Used Any Other Forms Of Tobacco Or Nicotine? No MIGRATION.14676 05005 Information not available 12/25/2022 Sex: Female Functional Status Question Answer Note LastModified by Organizat ion Details LastModified Time Do you have difficulty walking or climbing stairs? No MIGRATION.8400291 026 Information not available 12/25/2022 Do you have transportation difficulties? No MIGRATION.[id number] 026 Information not available 12/25/2022 Are you able to walk? YESWOREST MIGRATION.6016933 026 Information not available 12/25/2022 Do you have difficulty doing errands alone? No MIGRATION.1146674 026 Information not available 12/25/2022 Are you able to care for yourself? Yes MIGRATION.6737758 026 Information not available 12/25/2022 Do you have difficulty dressing or bathing? No MIGRATION.0985914 026 Information not available 12/25/2022 What is your exercise level? Moderate MIGRATION.[id number] 026 Information not available 12/25/2022 Mental Status Question Answer Note LastModified by Organizat ion Details LastModified Time Do you have difficulty concentrating, remembering or making decisions? No MIGRATION.[id number] 6 Information not available 12/25/2022 Family History Relationship Description Onset Age of this Age Resolved Age Notes LastModified by Organization Details LastModified Time Father Diabetes mellitus MIGRATION.414 [id number] Not available 12/25/2022 04:41:47 Father Carcinoma of colon MIGRATION.657 [id number] Not available 12/25/2022 04:41:47 Mother Diabetes mellitus MIGRATION.864 [id number] Not available 12/25/2022 04:41:47 Mother Heart failure 81 MIGRATION.900 [id number] Not available 12/25/2022 04:41:47 Mother Carcinoma of breast MIGRATION.933 [id number] Not available 12/25/2022 04:41:47 Brother Malignant neoplasm of liver 50 MIGRATION.205 [id number] Not available 12/25/2022 04:41:47 Brother Cerebrovascu lar accident deceas ed MIGRATION.807 [id number] Not available 12/25/2022 04:41:47 Brother of unknown cause MIGRATION.348 [id number] Not available 12/25/2022 04:41:47 Medical History Condition Response ARTHRITIS Y GERD/NAUSEA Y DIABETES, TYPE Y DEPRESSION (INCLUDING POST ) Y HEARTBURN / REFLUX Y HAVE YOU BEEN HOSPITALIZED OR SEEN IN [facility] IN THE PAST YEAR ? Y HYPERTENSION Y DEMENTIA Y HIGH CHOLESTEROL / HYPERLIPIDEMIA Y Gynecological History Statement/Question Response Abnormal Pap N Date of Last Mammogram 12/14/2015 Current Control Method Hysterectom y Date of Last Colonoscopy 05/26/2014 Date of LMP Obstetrics History GPAL:G 6 P 2 0 4 2 Type Value Full Term 2 Spontaneous 3 Living 2 Ectopics 1 Total 6 Immunizations Vaccine Type Date Status Note Provider Nam e and Address Organization Details Recorded Time COVID-19, mRNA, LNP-S, PF, 100 mcg/0.5mL dose or 50 mcg/0.25mL dose 1 completed Not Available [facility] 11/27/2023 01:56:22 COVID-19, mRNA, LNP-S, PF, 100 mcg/0.5mL dose or 50 mcg/0.25mL dose 1 completed Not Available [facility] 11/27/2023 01:56:22 Influenza, split virus, quadrivalent, preservative 0 completed Not Available [facility] 11/27/2023 01:56:22 DTaP-IPV 8 completed Not Available [facility] 11/27/2023 01:56:22 Influenza, split virus, quadrivalent, preservative 7 completed Not Available [facility] 11/27/2023 01:56:22 Influenza, high-dose, quadrivalent, PF 2 completed Not Available [facility] 11/27/2023 01:56:22 Pneumococcal conjugate PCV 13 2 completed Not Available [facility] 11/27/2023 01:56:22 Influenza, high-dose, quadrivalent, PF 1 completed Not Available [facility] 11/27/2023 01:56:22 Influenza, high-dose, trivalent, PF 4 completed Amanda Ledezma MD [address] [place], [place] [address], [address], [address], [facility] [employer] 08/23/2024 17:39:43 Past Encounters Encounter ID Performer Location Encounter Start Date Encounter Closed Date Diagnosis/Indication Diagnosis SNOMED-CT Code Diagnosis ICD10 Code Diagnosis Note [id number] [facility] Internal Med [facility] [place] [address] [address] 01/22/2021 00:00:00 03/14/2021 10:31:39 [id number] [facility] Internal Med [facility] [address] [place] [address] [place] [address] 05/14/2021 00:00:00 05/16/2021 10:07:22 [id number] [facility] [place] [address] [place] [address] 06/12/2021 00:00:00 06/12/2021 13:20:24 [id number] [facility] Internal Med [facility] [address] [place] [address] [place] [address] 06/20/2021 00:00:00 06/20/2021 11:30:19 [id number] [facility] Internal Med [place] [address] [facility] y , [place] [address] 08/27/2021 00:00:00 08/27/2021 18:37:04 [id number] [facility] [place] [address] [facility] y , [place] [address] 11/12/2021 00:00:00 12/18/2021 10:06:23 [id number] [facility] [place] [address] [place] [address] 03/07/2022 00:00:00 03/07/2022 13:55:58 [id number] [facility] Internal Med [facility] [address] [place] [address] 03/19/2022 00:00:00 03/19/2022 18:29:07 [id number] [facility] [place] [address] [place] [address] 05/21/2022 00:00:00 05/21/2022 11:55:56 [id number] [facility] [place] [address] [facility] y , [place] [address] 09/16/2022 00:00:00 09/17/2022 17:26:19 [id number] [facility] [place] [address] [place] [address] 11/21/2022 00:00:00 11/21/2022 15:58:03 [id number] Ping Tatum MD [facility] [place] [address] [place] [address] 12/30/2022 14:41:59 12/30/2022 15:13:30 Prediabetes 302714778 R73.03 A1C 5.4% stable- continue on trulicity 1.5 mg SQ weekly as patient tolerating well- she has maintained up to 12 pound weight loss. Discussed carb counting and how to read food labels. Recommende d patient to utilize the diabetesfo [employer] from the ADA website to help with food preparatio n as this presents ideal carb content per meal so this will make carb counting much easier for patient. Recommende d she incorporat e natural insulin medical billing and coding specialist s such as pears, apples, cinnamon, april and sweet potatoes to help mobilize her endogenous insulin. Recommende d up to 150 minutes of moderate level activity/e xercise weekly. Familial hypercholesterolemia [id number] E78.01 Continue on repatha as patient tolerating well and LDL in range. Loose stool [id number] R1 9.5 Will send for elastase and fecal fat to screen for EPI and malabsorpt ion. Spent up to 28 minutes preparing to see the patient (eg, review of tests), obtaining and/or reviewing separately obtained history, performing a medically appropriat e examinatio n and evaluation , counseling and educating the patient, ordering medication s, tests, along with documentin g clinical informatio n in the electronic health record, independen tly interpreti ng results and communicat ing results to the patient. RTC in 6 months. Patient was provided a handwritte n lab order which contains our fax number. If she chooses to go outside of the [facility] system to obtain labwork she was advised to provide our fax number and my informatio n to the lab she will be obtaining labwork from in order to have her labs properly forwarded over for me to review so there is no loss of follow up due to use of outside network. She was also advised to contact our clinic informing us that she has completed her labwork so we are aware we will need to reach out to the appropriat e laboratory to request her results be forwarded to us so I might have the ability to review and make further medical decision making in her case. She voiced understand ing. [id number] Amanda allen MD [facility] [place] [address] [facility] [place] [address] 02/24/2023 17:35:11 02/24/2023 18:34:09 Screening - NAD [id number] Z13.9 C-scope: Dr. Zora noriega 05/26/14, poor prep needs to do anotherC-s cope Dr Sanchez 06/22/2021 , next in 5 years Mammogram: 07/03/18: NegMammogr am: 06/06/2020 : Jeramy Taylor, US breast R: Neg, next in one yearOrdere d again DEXA: ordered skin lesionPAP: s/p hysterecto my, not doing these UTD flu shotUTD Tdap 03/13UTD on COVID 19 vaccinePCV #13 11/12/2021 Can do shingrix RTC in 4 monthsDo labs labs provided last OVER if worseShe did verbalize her understand ing of the above Type 2 elpidio betes mellitus without complication [id number] E11.9 On trulicity, but today states that she does not want this as it was $270, will give her samples of ozempic 02/24/2023 Does Arpita Tatum 06/16/[address] Holley, s/p fracture of the 3rd left toe 11/21/2022 Hyperlipidemia 72543189 E78.[address] Tatum Increased liver function 71119248 R94.5 08/29/2020 : Dr Luke: Can use statins, alcohol abstinence , may need liver biopsy if chronic hepatitis and f/u in 9 months F/u with Dr Luke Essential hypertension [id number] I10 On amlodipine 5mg dailyOn losartan HCTZ 100-12.5mg daily Get labsNeeds to keep apt with Dr Andrade [facility] Chronic depression 42907 0009 F32.A On sertraline 50mg daily, does wellOn trazodone 50mg daily Not suicidal or homicidal and declines any referrals to psychiatry Restless legs 74490097 G 25.81 On ropinirole 0.5mg daily Does wellRenewe d Gastroesop hageal reflux disease without esophagitis [id number] K21.9 On omeprazole Does wellTake as neededGet EGD done as she has noted some dark stools Osteoarthr itis of knee 841216431 M17.9 Dr Lawrence: Is to now get TKR in or 2020 Surgery: L TKRSurgeon : Dr Mcintyre: 02/12/2021 Does well now Screening mammography 24 888682 Z12.31 Screening for osteoporosis 388110253 Z13.820 Skin lesion 28119440 L98 .9 Has noted very dry skin on the forearms, wants a referral to dermatolog y Screening for malignant neoplasm of colon 677864800 Z12.11 [id number] Amanda allen MD [facility] [address] [place] [address] 08/23/2024 13:52:47 08/23/2024 15:05:59 Screening - NAD 271471580 Z13.9 C-scope: Dr. Zora noriega 05/26/14, poor prep needs to do anotherC-s cope Dr Sanchez 06/22/2021 , next in 5 years Mammogram: 07/03/18: NegMammogr am: 06/06/2020 : Birads O, US breast R: Neg, next in one yearOrdere d again DEXA: ordered skin lesionPAP: s/p hysterecto my, not doing these UTD flu shotUTD Tdap 03/13UTD on COVID 19 vaccinePCV #13 11/12/2021 Can do shingrix RTC in 4 monthsDo labs labs provided last OVER if worseShe did verbalize her understand ing of the above Type 2 elpidio betes mellitus without complication 157032415 E11.9 Not on trulicityO n ozempic will d/c now 08/23/2024 Does very well, no hx of MEN2, MCT or thyroid or parathyroi d or pancreatic complaints , tolerates the GLP-1 very well and advised to take with supplement s and hydrate, do not take prior to any surgery Does Arpita Tatum 06/16/[address]Se[address] Holley, s/p fracture of the 3rd left toe 11/21/2022 Hyperlipidemia 29377860 E78.[address] Tatum Increased liver function 37286850 R94.5 08/29/2020 : Dr Luke: Can use statins, alcohol abstinence , may need liver biopsy if chronic hepatitis and f/u in 9 months F/u with Dr Luke Essential hypertension 99049586 I10 On amlodipine 5mg dailyOn losartan HCTZ 100-12.5mg daily Get labsNeeds to keep apt with Dr Andrade [facility] Chronic depression 47713 0009 F32.A On sertraline 50mg daily, does wellOn trazodone 50mg daily Not suicidal or homicidal and declines any referrals to psychiatry Restless legs 04352552 G 25.81 On ropinirole 0.5mg daily Does wellRenewe d Gastroesop hageal reflux disease without esophagitis 942905378 K21.9 On omeprazole Does wellTake as neededGet EGD done as she has noted some dark stools Osteoarthr itis of knee 293188597 M17.9 Dr Lawrence: Is to now get TKR in or 2020 Surgery: L TKRSurgeon : Dr Shawate: 02/12/2021 Does well now Screening mammography 24 100309 Z12.31 Screening for osteoporosis 927507685 Z13.820 Skin lesion 17018773 L98 .9 Has noted very dry skin on the forearms, wants a referral to dermatolog y Screening for malignant neoplasm of colon 666259132 Z12.11 Adult heal th examination 042890311 Z00.00 Screening for disorder 235892910 Z13.9 Pain of le ft shoulder joint [id number] 0713420 M25.512 Get PT to eval and treat Administra tion of influenza vaccine 32925248 Z23 [id number] Amanda allen MD [facility] [address] [place] [address] 11/15/2024 11:13:19 11/15/2024 11:58:49 Screening - NAD 096148351 Z13.9 C-scope: Dr. Zora noriega 05/26/14, poor prep needs to do anotherC-s cope Dr Sanchez 06/22/2021 , next in 5 years Mammogram: 07/03/18: NegMammogr am: 06/06/2020 : Birads O, US breast R: Neg, next in one yearOrdere d again DEXA: ordered skin lesionPAP: s/p hysterecto my, not doing these UTD flu shotUTD Tdap 03/13UTD on COVID 19 vaccinePCV #13 11/12/2021 Can do shingrix RTC in 4 monthsDo labs labs provided last OVER if worseShe did verbalize her understand ing of the above Type 2 elpidio betes mellitus without complication 335341140 E11.9 Not on trulicityO n ozempic will d/c 08/23/2024 , states 11/15/2024 that she would like to get back on this, will restart Does very well, no hx of MEN2, MCT or thyroid or parathyroi d or pancreatic complaints , tolerates the GLP-1 very well and advised to take with supplement s and hydrate, do not take prior to any surgery Does Arpita Tatum 06/16/[address] to do labsSees Dr Holley, s/p fracture of the 3rd left toe 11/21/2022 Hyperlipidemia 61652071 E78.[address] TatumGet labs Increased liver function 02367730 R94.5 08/29/2020 : Dr Luke: Can use statins, alcohol abstinence , may need liver biopsy if chronic hepatitis and f/u in 9 months F/u with Dr Luke Essential hypertension 53698921 I10 On amlodipine 5mg dailyOn losartan HCTZ 100-12.5mg daily, addendum: 11/04/2024 : Renewed Get labsNeeds to keep apt with Dr Andrade [facility] Chronic depression 53941 0009 F32.A On sertraline 50mg daily, does wellOn trazodone 50mg daily Not suicidal or homicidal and declines any referrals to psychiatry Restless legs 58376908 G 25.81 On ropinirole 0.5mg daily Does wellRenewe d Gastroesop hageal reflux disease without esophagitis 741818760 K21.9 On omeprazole Addendum: 11/04/2024 : Renewed Does wellTake as neededGet EGD done as she has noted some dark stools Osteoarthr itis of knee 949746024 M17.9 Dr Lawrence: Is to now get TKR in or 2020 Surgery: L TKRSurgeon : Dr Shawate: 02/12/2021 Does well now Pain of le ft shoulder joint [id number] 7101196 M25.512 Get PT to eval and treat Upper resp iratory infection 80282022 J06.9 Addendum: 10/26/2024 :C/o cough with productive mucus, and nasal congestion , requesting Z-pack, sent OV 11/15/2024 : Was better with the z-pack and then sustained a fall, now has a cough, will get Xrays and start on levaquin 750mg po daily for 7 daysMay need to go to the ER if xrays reveals pneumoniaD id get xrays for her back as per her history, there is some ecchymosis and tenderness noted on the celine PS areaCan do OTC NSAIDs as needed with food, notify if not better Addendum: 11/17/2024 :Xrays 11/16/2024 : neg Vitamin D deficiency 347 26354 E55.9 Health Concerns Section Related Observation LastModified by Organization Detai ls LastModified Time None Recorded Concern Status LastModified by Organization Details LastModified Time None Recorded Advance Directives Directive N: Payers Encounter Date Sequence Insurance Name Policy Number Policy Ramos Covered Member ID Ramos Member ID Guarantor Name 12/30/2022 1 [place] Maya Hollis [id number] 1 Maya Hollis 12/30/2022 2 [employer] (MEDICARE SUPPLEMENT) Maya Clark [id number] Maya Hollis 02/24/2023 1 [place] Hollis [id number] 1 Maya Hollis 08/23/2024 1 [place] Maya Hollis [id number] 1 Maya Hollis 11/15/2024 1 [place] Maya Hollis [id number] 1 Maya Hollis 11/15/2024 2 [employer] (MEDICARE SUPPLEMENT) Maya Hollis [id number] Maya Hollis Notes Date Note Type Note Provider Name and Address Organization Details Recorded Time 12/30/2022 text/html 67 yo female com es in for follow up in management of prediabetes (A1C of 5.4% stable) and familial hypercholesterolemia. New concern of loose stools x 3 months. last seen in April at that time we continued ozempic 0.5 mg once weekly and restarted repatha every 2 weeks. patient highest weight at 184 pounds- has maintained up to 14 pound weight loss. She will be getting her repatha and also getting trulicity from the divider operator - through [facility]. She is taking the 1.5 mg dose and tolerating well. She has had more diarrhea for the past 3 months- worse with coffee. She hasn't traveled overseas or had exposure to raw meals/meats. She has noticed more UTIS - recently give cephalexin for management. She will go back to urology. labs from 10/04/22:glucose 125 mg/dLCr normalLFT highvit D 34.7 ng/mLmicroalbumin <6 ug/mga1c 5.4%233/128/94/113 (was 152/76/92/45 over the summer)H/H normalTSH of 1.740 uIU/mlFT4 of 1.06 ng/dL Ping Tatum MD [address] [facility] [address], [place], [address], [facility] [employer] 12/30/2022 16:13:37 02/24/2023 text/html Last OV 06/04/17 Here to khanh Gutierrez Hx:HTNDMIIDepressionR LSReviewed social family and surgical historyWas treated recently for UTI and is now on the cipro.Does see a dermatology and also has some itching OV 08/12/17:Here with shoulder pain and some diarrhea from the metforminHas had L shoulder pain, pain is located in the shoulder, and feels that both the hand have tingling,pain keeps her awake, does not recall any acute or remote trauma, pain is an ache, R HD and feels that the early intervention specialist is good OV 08/27/17CV:C/o L knee painDId have an xray on 08/25/17Tripped and feel in her garden, she fell on brick, a week agoPain and swelling all over the kneeIs limpingNo N/T or weakness in the L knee, and pain increases with walking and bending the kneePain is better with heat and took some old tramadol that helped it also OV 04/01/18:Here for her routine aptShe also has pain in the L leg, with a cut, was pulling a garden cart and this hit the carrillo 6 weeks ago, did go to the 2 weeks ago and was treated with clindamycin and was told to let it dry outStill hurtsJhone did do the labs in 01/07/18 but no new labs since then OV 07/01/18:Here for her routine aptFeels that she is doing wellNo recent labs have been done OV 01/11/19:Here for her post hospitalization aptShwatson has seen Dr Tatum alsoURI sx for a week, cough, runny nose, ear popCough is yellow and no bloodNo fevers or chillsNo N/VSome diarrhea OV 05/05/19:Here for her routine aptNo new labsLexy does complain of itching in the L footShe states that she did see a foot doctor and was given a cream but that made it worseShwatson also needs to get her referrals done as she has had her nephrectomy done, she needs to be seen for endocrine and also her liver MD OV 05/11/19:Here for ACV:Got bit by a wasp while working in a gardenNow has some swelling over the R wrist and R ankleNo fevers or chills, no N/V or diarrhea, no other rashNo difficulty breathing OV 08/18/19:Here for her routine aptShe is doing well at this timeShe did do the labs on 08/16/19She states that she did not take the repathaShe also has some URI sxR sided sinus congestion and some pain, no cough or feversNo chest pain on SOB OV 11/04/2019:Here for ACV:C/o sinus congestion and URI sx for at least 4-5 daysHad a sick grandaughterC/o cough, yellowNo blood in sputumNo fevers or chillsNo N/V or diarrheaNo chest pain or SOBNo rashDid go to the UC and was treated amixcillin but still has the coughShe also has seen Dr Tatum and is now on the repathaShe would like to also get on the requip as this helps with her restless legsShe would also like a refill on the sertraline and also get a new dermatology referral done OV 03/27/2020:Here for her routine aptShe is doing well, is having some GERD and wants to get a c-scope and EGD as her father did have CRCShe also has c/o insomnia, states that she lies awake the whole nightShe has not done any new labs OV 04/10/2020:She is here as she would like to check out if she has dementiaShe feels she is getting more forgetfulNo other complaints and apt was made to do a MMSE OV 09/25/2020:Here for her routine aptShe feels Enrrique has no new labsShe did see Dr Tatum and is now on ozempic every other weekShe has also done her mammogramNeeds to still get the c-scope done OV 01/22/2021:Here for her routine aptShe is doing wellShe is to get knee surgery alsoShe is here to get refills OV 05/14/2021:Here for her routine aptShe ananya Osuna did do the labs OV 06/20/2021:ACV:C/o burn in the tongue while eating a pizzaNow has a white patch on the dorsum of the tongue, as per her it is fading but she now also has a dry mouth, she feels that this could also be from her root canal done 2 weeks agoNo pain in the tongue, no swelling, no fissure on the tongueAble to swallow wellNo other oral issuesNo URI symptoms OV 08/27/2021:ACV:C/o L shoulder pain with tingling when she lifts her armAlso L hand numbnessNo acute injuryPain is a 'bothersome' pain, she is R HD OV 11/12/2020:Here for her routine aptShe is doing wellDoes well OV 03/19/2022:Here for her f/u visitShe is doing wellShe did the labs today OV 09/16/2022:Here for her f/u apt, she is doing wellShe does need to do labs, needs to get her ozempic see case on 09/02/2022 OV 02/24/2023:Here for her f/u apt, she is doing well, noted some dark stool, needs to do c-scope and EGD Amanda Ledezma MD [address] [place] [address] [address], [place], [address], [place] [facility] [place] [email or web address] 02/24/2023 18:29:02 08/23/2024 text/html Last OV 06/04/17 Here to khanh Gutierrez Hx:HTNDMIIDepressionR LSReviewed social family and surgical historyWas treated recently for UTI and is now on the cipro.Does see a dermatology and also has some itching OV 08/12/17:Here with shoulder pain and some diarrhea from the metforminHas had L shoulder pain, pain is located in the shoulder, and feels that both the hand have tingling,pain keeps her awake, does not recall any acute or remote trauma, pain is an ache, R HD and feels that the early intervention specialist is good OV 08/27/17CV:C/o L knee painDId have an xray on 08/25/17Tripped and feel in her garden, she fell on brick, a week agoPain and swelling all over the kneeIs limpingNo N/T or weakness in the L knee, and pain increases with walking and bending the kneePain is better with heat and took some old tramadol that helped it also OV 04/01/18:Here for her routine aptShe also has pain in the L leg, with a cut, was pulling a garden cart and this hit the carrillo 6 weeks ago, did go to the UC 2 weeks ago and was treated with clindamycin and was told to let it dry outStill Todd did do the labs in 01/07/18 but no new labs since thenOV 07/01/18:Here for her routine aptFeels that she is doing wellNo recent labs have been done OV 01/11/19:Here for her post hospitalization aptShwatson has seen Dr Rc hdezx for a week, cough, runny nose, ear popCough is yellow and no bloodNo fevers or chillsNo N/VSome diarrhea OV 05/05/19:Here for her routine aptNo new labsShwatson does complain of itching in the L footShe states that she did see a foot doctor and was given a cream but that made it worseShwatson also needs to get her referrals done as she has had her nephrectomy done, she needs to be seen for endocrine and also her liver MD OV 05/11/19:Here for ACV:Got bit by a wasp while working in a gardenNow has some swelling over the R wrist and R ankleNo fevers or chills, no N/V or diarrhea, no other rashNo difficulty breathing OV 08/18/19:Here for her routine aptShe is doing well at this timeShe did do the labs on 08/16/19She states that she did not take the repathaShe also has some URI sxR sided sinus congestion and some pain, no cough or feversNo chest pain on SOBOV 11/04/2019:Here for ACV:C/o sinus congestion and URI sx for at least 4-5 daysHad a sick grandaughterC/o cough, yellowNo blood in sputumNo fevers or chillsNo N/V or diarrheaNo chest pain or SOBNo rashDid go to the and was treated amixcillin but still has the coughShe also has seen Dr Tatum and is now on the repathaShe would like to also get on the requip as this helps with her restless legsShe would also like a refill on the sertraline and also get a new dermatology referral doneOV 03/27/2020:Here for her routine aptShe is doing well, is having some GERD and wants to get a c-scope and EGD as her father did have CRCShe also has c/o insomnia, states that she lies awake the whole nightShe has not done any new labsOV 04/10/2020:She is here as she would like to check out if she has dementiaShe feels she is getting more forgetfulNo other complaints and apt was made to do a MMSEOV 09/25/2020:Here for her routine aptShe gailketty Enrrique has no new labsShe did see Dr Tatum and is now on ozempic every other weekShe has also done her mammogramNeeds to still get the c-scope done OV 01/22/2021:Here for her routine aptShe is doing wellShe is to get knee surgery alsoShe is here to get refillsOV 05/14/2021:Here for her routine aptShe feels Enrrique did do the labsOV 06/20/2021:ACV:C/o burn in the tongue while eating a pizzaNow has a white patch on the dorsum of the tongue, as per her it is fading but she now also has a dry mouth, she feels that this could also be from her root canal done 2 weeks agoNo pain in the tongue, no swelling, no fissure on the tongueAble to swallow wellNo other oral issuesNo URI symptomsOV 08/27/2021:ACV:C/o L shoulder pain with tingling when she lifts her armAlso L hand numbnessNo acute injuryPain is a 'bothersome' pain, she is R HDOV 11/12/2020:Here for her routine aptShe is doing wellDoes wellOV 03/19/2022:Here for her f/u visitShe is doing wellShe did the labs todayOV 09/16/2022:Here for her f/u apt, she is doing wellShe does need to do labs, needs to get her ozempic see case on 09/02/2022 OV 02/24/2023:Here for her f/u apt, she is doing well, noted some dark stool, needs to do c-scope and EGD OV 08/23/2024: Here for her f/u apt, she is doing well today, did do the labs on 08/18/2024, has L shoulder pain, states that this only occurs when she sleeps on the L side, she is RHD, no N/T or weakness Amanda Ledezma MD [address] [facility] [address], [place], [address], [facility] [employer] 08/24/2024 10:05:19 11/15/2024 text/html Last OV 06/04/17 Here to khanh Gutierrez Hx:HTNDMIIDepressionR LSReviewed social family and surgical historyWas treated recently for UTI and is now on the cipro.Does see a dermatology and also has some itching OV 08/12/17:Here with shoulder pain and some diarrhea from the metforminHas had L shoulder pain, pain is located in the shoulder, and feels that both the hand have tingling,pain keeps her awake, does not recall any acute or remote trauma, pain is an ache, R HD and feels that the early intervention specialist is good OV 08/27/17CV:C/o L knee painDId have an xray on 08/25/17Tripped and feel in her garden, she fell on brick, a week agoPain and swelling all over the kneeIs limpingNo N/T or weakness in the L knee, and pain increases with walking and bending the kneePain is better with heat and took some old tramadol that helped it also OV 04/01/18:Here for her routine aptShwatson also has pain in the L leg, with a cut, was pulling a garden cart and this hit the carrillo 6 weeks ago, did go to the UC 2 weeks ago and was treated with clindamycin and was told to let it dry outStill Todd did do the labs in 01/07/18 but no new labs since thenOV 07/01/18:Here for her routine aptFeels that she is doing wellNo recent labs have been done OV 01/11/19:Here for her post hospitalization aptShwatson has seen Dr Tatum alsoURI sx for a week, cough, runny nose, ear popCough is yellow and no bloodNo fevers or chillsNo N/VSome diarrhea OV 05/05/19:Here for her routine aptNo new labsLexy does complain of itching in the L footShe states that she did see a foot doctor and was given a cream but that made it worseShwatson also needs to get her referrals done as she has had her nephrectomy done, she needs to be seen for endocrine and also her liver MD OV 05/11/19:Here for ACV:Got bit by a wasp while working in a gardenNow has some swelling over the R wrist and R ankleNo fevers or chills, no N/V or diarrhea, no other rashNo difficulty breathing OV 08/18/19:Here for her routine aptShe is doing well at this timeShe did do the labs on 08/16/19She states that she did not take the repathaShe also has some URI sxR sided sinus congestion and some pain, no cough or feversNo chest pain on SOBOV 11/04/2019:Here for ACV:C/o sinus congestion and URI sx for at least 4-5 daysHad a sick grandaughterC/o cough, yellowNo blood in sputumNo fevers or chillsNo N/V or diarrheaNo chest pain or SOBNo rashDid go to the UC and was treated amixcillin but still has the coughShe also has seen Dr Tatum and is now on the repathaShe would like to also get on the requip as this helps with her restless legsShe would also like a refill on the sertraline and also get a new dermatology referral doneOV 03/27/2020:Here for her routine aptShe is doing well, is having some GERD and wants to get a c-scope and EGD as her father did have CRCShe also has c/o insomnia, states that she lies awake the whole nightShe has not done any new labsOV 04/10/2020:She is here as she would like to check out if she has dementiaShe feels she is getting more forgetfulNo other complaints and apt was made to do a MMSEOV 09/25/2020:Here for her routine aptShe feels Enrrique has no new labsShe did see Dr Tatum and is now on ozempic every other weekShe has also done her mammogramNeeds to still get the c-scope done OV 01/22/2021:Here for her routine aptShe is doing wellShe is to get knee surgery alsoShe is here to get refillsOV 05/14/2021:Here for her routine aptShe feels Forrestolivier did do the labsOV 06/20/2021:ACV:C/o burn in the tongue while eating a pizzaNow has a white patch on the dorsum of the tongue, as per her it is fading but she now also has a dry mouth, she feels that this could also be from her root canal done 2 weeks agoNo pain in the tongue, no swelling, no fissure on the tongueAble to swallow wellNo other oral issuesNo URI symptomsOV 08/27/2021:ACV:C/o L shoulder pain with tingling when she lifts her armAlso L hand numbnessNo acute injuryPain is a 'bothersome' pain, she is R HDOV 11/12/2020:Here for her routine aptShe is doing wellDoes wellOV 03/19/2022:Here for her f/u visitShe is doing wellShe did the labs todayOV 09/16/2022:Here for her f/u apt, she is doing wellShe does need to do labs, needs to get her ozempic see case on 09/02/2022 OV 02/24/2023:Here for her f/u apt, she is doing well, noted some dark stool, needs to do c-scope and EGD OV 08/23/2024: Here for her f/u apt, she is doing well today, did do the labs on 08/18/2024, has L shoulder pain, states that this only occurs when she sleeps on the L side, she is RHD, no N/T or weakness OV 11/15/2024: Here for her f/u apt, she did sustain a fall at home and was seen in the UC for LBP, now has noted a cough, d/t her not able to take a deep breath, no fevers or chills, no SOB Amanda Ledezma MD [address] [facility] [address], [place], [address], [facility] 11/17/2024 12:43:05 OBGyn Episode No OBEpisode recorded.
== END 2024-11-16 10:53 | disposition home or self-care (01) ==
PROVIDERS: PCP Internal Medicine; Visit Provider Internal Medicine
DX: J06.9 Acute upper respiratory infection, unspecified (principal); M47.896 Other spondylosis, lumbar region
CPT/HCPCS: 71046; 71110

== ENCOUNTER 2025-06-20 16:14 | Outpatient (CLI) | payer MEDICARE, OTHER, SELFPAY ==
--- NOTE | ~2025-06-20 | XR_ITS ---
EXAMINATION: XR shoulder LT min 2V DATE: 06/20/2025 16:31 INDICATION: Pain in left shoulder TECHNIQUE: 3 images of the left shoulder were obtained. COMPARISON: None FINDINGS: Bone mineralization is within normal limits. No fracture. No dislocation. Mild joint space narrowing in the left glenohumeral joint. Moderate degenerative change in the left acromioclavicular joint. Moderate-sized spur in the greater tuberosity the left humeral head. IMPRESSION: 1. No fracture. 2. Mild joint space narrowing in the left glenohumeral joint. 3. Moderate degenerative change in the left acromioclavicular joint. 4. Moderate-sized spur about the left greater tuberosity If symptoms persist or worsen, consider a short-term follow-up study or additional imaging for further assessment. Reviewed, dictated and finalized at location [facility]. IMPRESSION: 1. No fracture. 2. Mild joint space narrowing in the left glenohumeral joint. 3. Moderate degenerative change in the left acromioclavicular joint. 4. Moderate-sized spur about the left greater tuberosity If symptoms persist or worsen, consider a short-term follow-up study or additio nal imaging for further assessment.
== END 2025-06-20 16:15 | disposition home or self-care (01) ==
PROVIDERS: PCP Internal Medicine; Visit Provider Internal Medicine
DX: M19.012 Primary osteoarthritis, left shoulder (principal)
CPT/HCPCS: 73030